=== PATIENT | female | born 1995 | race Caucasian/White ===

== ENCOUNTER 2025-04-12 12:10 | Emergency (ER) | payer SELFPAY ==
[2025-04-12 12:11] VITALS: BP 147/102; PULSE 87; RESP 16; TEMP 37.1; O2SAT 100; BMI 39.5
--- NOTE | 2025-04-12 12:28 | CT_ITS ---
PROCEDURE: BRAIN/HEAD WITHOUT CONTRAST 04/12/2025 REASON FOR EXAM: PAIN INJURY Initial encounter. TECHNIQUE: Head CT without intravenous contrast. Coronal and Sagittal reconstruction series were provided. One or more dose reduction techniques were used (e.g., Automated exposure control, adjustment of the mA and/or kV according to patient size, use of iterative reconstruction technique. RADIATION DOSE SUMMARY: CTDlvol: 44.99 and 29.38 mGy DLP: 1400.15 mGycm COMPARISON: CT facial bones of same date FINDINGS: Brain: No intra-axial or extra-axial hemorrhage. No signs of ischemia or infarcts. CSF Spaces: CSF spaces, ventricles and sulci appear normal Sinuses/Mastoids: Minimal ethmoid sinus mucosal thickening. Sinuses predominantly clear. Mastoid air cells are clear. Bones: No aggressive lesions. CT/Brain/Head without Contrast IMPRESSION: No acute process detected. Other findings as above. Reading [facility]
--- OUTSIDE RECORDS SUMMARY | 2025-04-12 12:57 | XMS RPT_ITS | CCD ---
Author Organization [facility] Care Team Providers Care Medical Liaison Name Role Phone Maureen Martinez MD Primary Care Provider [phone] YOON PEREIRA CNM Attending Unavailable PEREIRA, YOON CNM Admitting Unavailable PEREIRA, YOON CNM Primary Care Unavailable PEREIRA, YOON CNM Primary Care Unavailable PEREIRA, YOON CNM Attending Unavailable PEREIRA, YOON CNM Admitting Unavailable WEBSTER, ANIRUDH CNM Admitting Unavailable WEBSTER, ANIRUDH CNM Primary Care Unavailable WEBSTER, ANIRUDH CNM Attending Unavailable PEREIRA, YOON CNM Attending Unavailable PEREIRA, YOON CNM Admitting Unavailable PEREIRA, YOON CNM Primary Care Unavailable PEREIRA, YOON CNM Primary Care Unavailable PEREIRA, YOON CNM Attending Unavailable PEREIRA, YOON CNM Admitting Unavailable PEREIRA, YOON CNM Primary Care Unavailable PEREIRA, YOON CNM Attending Unavailable PEREIRA, YOON CNM Admitting Unavailable PEREIRA, YOON CNM Primary Care Unavailable PEREIRA, YOON CNM Attending Unavailable PEREIRA, YOON CNM Admitting Unavailable Maureen Martinez MD Primary Care Provider [phone] Maureen Martinez MD Primary Care Provider [phone] MAUREEN MARTINEZ Primary Care Unavailable MAUREEN MARTINEZ Primary Care Unavailable MAUREEN MARTINEZ Primary Care Unavailable MAUREEN MARTINEZ Primary Care Unavailable Medications Current Medications Medication Drug Class(es) Dates Sig (Normalized) Sig (Original) acetaminophen 325 mg oral tablet (6 sources) take 2 tablets by mouth every six hours as needed acetaminophen (TYLENOL) 325 mg tablet Take 650 mg by mouth every 6 hours as needed. Active Comment on above: Take 650 mg by mouth every 6 hours as needed. amoxicillin 875 mg / clavulanate 125 mg oral tablet (4 sources) Penicillin-class Antibacterial Start: 09-24-2024 End: 10-04-2024 take 1 tablet by mouth twice daily amoxicillin-clavul anate potassium (AUGMENTIN) 875-125 mg per tablet Take 1 tablet by mouth two times a day for 10 days. 20 tablet 09/24/2024 10/04/2024 Active Start: 03-02-2024 End: 03-12-2024 take 1 tablet by mouth twice daily amoxicillin-clavulanate potassium (AUGMENTIN) 875-125 mg per tablet Indications: Pain, dental Take 1 tablet by mouth two times a day for 10 days. 20 tablet 0 03/02/2024 03/12/2024 Active Start: 01-05-2024 End: 01-12-2024 take 1 tablet by mouth twice daily amoxicillin-clavulanate potassium (AUGMENTIN) 875-125 mg per tablet Take 1 tablet by mouth two times a day for 7 days. 14 tablet 0 01/05/2024 01/12/2024 Active Start: 01-06-2023 End: 01-11-2023 take 1 tablet by mouth twice daily amoxicillin-clavulanic acid (AUGMENTIN) 875-125 mg per tablet Indications: Rhinosinusitis Take 1 tablet by mouth twice daily for 5 days. 10 tablet 0 01/06/2023 01/11/2023 Active Comment on above: Take 1 tablet by rachelle th twice daily for 5 days. Take 1 tablet by rachelle th two times a day for 7 days. Completed/Discontinued Medications Medication Drug Class(es) Dates Sig (Normalized) Sig (Original) doxycycline monohydrate 100 mg oral tablet (1 source) Tetracycline-cla ss Drug Start: 01-06-2023 End: 01-06-2023 take 1 tablet by mouth twice daily doxycycline monohydrate 100 mg tablet Indications: Rhinosinusitis Take 1 tablet by mouth twice daily for 7 days. 14 tablet 0 01/06/2023 01/06/2023 Discontinued Comment on above: Take 1 tablet by rachelle th twice daily for 7 days. Problems Active Problems Problem Classification Problem Date Documented Da te Episodic/Chronic Anxiety disorders (6 sources) Generalized anxiety disorder; Translations: [Generalized anxiety disorder] Onset: 10-22-2015 10-27-2015 Chronic Disorders of teeth and jaw (3 sources) Infection of tooth; Translations: [Periapical abscess without sinus] 01-05-2024 Episodic Other upper respiratory disease (1 source) Chronic rhinitis; Translations: [Unspecified sinusitis (chronic)] Chronic Other upper respiratory infections (5 sources) Sore throat symptom; Translations: [Acute pharyngitis, unspecified] Episodic Residual codes; unclassified (3 sources) 38 weeks gestation of ; Translations: [38 weeks gestation of ] Onset: 12-03-2023 Episodic Substance-related disorders (6 sources) Smoker; Translations: [Nicotine dependence, unspecified, uncomplicated] Onset: 10-22-2015 10-31-2021 Chronic Past or Other Problems Problem Classification Problem Date Documented Date Episodic/Chronic Cancer of cervix (6 sources) Low grade squamous intraepithelial lesion on cervical Papanicolaou smear; Translations: [Low grade squamous intraepithelial lesion on cytologic smear of cervix (LGSIL)] Onset: 02-23-2017 02-23-2017 Episodic Headache; including migraine (2 sources) Headache; Translations: [Headache] Onset: 10-22-2015 Resolved: 03-23-2017 03-23-2017 Episodic Other complications of (6 sources) Maternal tobacco use; Translations: [Smoking (tobacco) complicating , first trimester] Onset: 01-12-2017 01-12-2017 Episodic Other complications of (2 sources) H/O: miscarriage; Translations: [Supervision of with other poor reproductive or obstetric history, unspecified trimester] Onset: 01-12-2014 Resolved: 06-03-2014 10-31-2021 Episodic Other and delivery including normal (10 sources) Normal ; Translations: [Encounter for supervision of normal , unspecified, third trimester] Onset: 01-12-2014 Resolved: 06-03-2014 06-27-2017 Episodic Screening and history of mental health and substance abuse codes (6 sources) H/O: depression; Translations: [Personal history of other mental and behavioral disorders] Onset: 01-12-2014 10-31-2021 Episodic Results Test Name Value Interpretation Reference Range Facil tram PASTRANAon 09-24-2024 CNOV Office Visit ([facility]) ANIRUDH WIGGINS ([id number]) 1995 F Date Time Provider Department 09/24/24 2:15 PM LOREE SPANGLER [facility] During your visit today, we recorded the following information about you: Temperature Pulse Respiration Blood pressure 98.9 degrees 110/minute 16/minute 122/80 Weight 117.5 kg Loree Spangler APRN.POINTER MACHINE OPERATOR 09/24/2024 2:10 PM Signed This note was created using [employer]. Subjective Anirudh Wiggins is a 29 year old female. 29 year old female with PMH anxiety and depression presents for dental complaints Acute on chronic Left lower The tooth itself has been messed up for a while States this bout started approximately 3 days ago +pain +sensitivity to hot and cold Pain with chewing Denies fever or chills Denies difficulty handling secretions. Denies seeking medical treatment prior to today She goes to a [place] dentist that is walk in. The history is provided by the patient. No american sign language teacher was used. Dental Problem This is a recurrent problem. The current episode started in the past 7 days. The problem occurs constantly. The problem has been gradually worsening. Pertinent negatives include no abdominal pain, anorexia, arthralgias, change in bowel habit, chest pain, chills, congestion, coughing, diaphoresis, fatigue, fever, headaches, joint swelling, myalgias, nausea, neck pain, numbness, rash, sore throat, swollen glands, urinary symptoms, vertigo, visual change, vomiting or weakness. Nothing aggravates the symptoms. She has tried nothing for the symptoms. The treatment provided no relief. PAST MEDICAL HISTORY Diagnosis Date Anemia DEPRESSION GBS (group B streptococcus) UTI complicating 07/17/2014 07/17/14 - treat in labor - KJ Rubella non-immune status, antepartum 01/13/2014 PAST SURGICAL HISTORY Procedure Laterality Date PAST SURGICAL HISTORY OF 2007 D and C ALLERGIES Patient has no known allergies. MEDICATIONS acetaminophen (TYLENOL) 325 mg tablet Take 650 mg by mouth every 6 hours as needed. amoxicillin-clavulan ate potassium (AUGMENTIN) 875-125 mg per tablet Take 1 tablet by mouth two times a day for 10 days. FAMILY HISTORY Problem Relation Age of Onset Hypertension Mother Arthritis Mother Heart Mother IRREGULAR HEARTBEAT Alcohol/Drug Father Psychiatry Father other (DEMENTIA) Paternal Grandmother Social History Tobacco Use Smoking status: Every Day Current packs/day: 1.00 Average packs/day: 1 pack/day for 5.0 years (5.0 ttl pk-yrs) Types: Cigarettes Smokeless tobacco: Never Substance Use Topics Alcohol use: Yes Comment: rarely Drug use: No Review of Systems Constitutional: Negative for chills, diaphoresis, fatigue and fever. HENT: Negative for congestion and sore throat. Respiratory: Negative for cough. Cardiovascular: Negative for chest pain. Gastrointestinal: Negative for abdominal pain, anorexia, change in bowel habit, nausea and vomiting. Musculoskeletal: Negative for arthralgias, joint swelling, myalgias and neck pain. Skin: Negative for rash. Neurological: Negative for vertigo, weakness, numbness and headaches. Objective BP 122/80 Pulse 110 Temp 37.2 ?C (98.9 ?F) Resp 16 Wt 117.5 kg (259 lb 0.7 oz) LMP 10/11/2016 SpO2 99% BMI 39.39 kg/m? Physical Exam Vitals and nursing note reviewed. Constitutional: General: She is not in acute distress. Appearance: Normal appearance. She is normal weight. She is not ill-appearing, toxic-appearing or diaphoretic. HENT: Head: Normocephalic and atraumatic. Right Ear: Ear canal and external ear normal. Left Ear: Ear canal and external ear normal. Nose: Nose normal. No congestion or rhinorrhea. Mouth/Throat: Mouth: Mucous membranes are moist. Pharynx: No oropharyngeal exudate or posterior oropharyngeal erythema. Comments: No trismus No muffled voice Uvula midline Handling secretions Eyes: General: Right eye: No discharge. Left eye: No discharge. Extraocular Movements: Extraocular movements intact. Conjunctiva/sclera: Conjunctivae normal. Pupils: Pupils are equal, round, and reactive to light. Cardiovascular: Rate and Rhythm: Normal rate and regular rhythm. Pulses: Normal pulses. Heart sounds: Normal heart sounds. No murmur heard. No friction rub. Pulmonary: Effort: Pulmonary effort is normal. No respiratory distress. Breath sounds: Normal breath sounds. No stridor. No wheezing, rhonchi or rales. Chest: Chest wall: No tenderness. Abdominal: General: Abdomen is flat. There is no distension. Palpations: Abdomen is soft. There is no mass. Tenderness: There is no abdominal tenderness. There is no right CVA tenderness, left CVA tenderness, guarding or rebound. Hernia: No hernia is present. Musculoskeletal: General: No swelling, tenderness, deformity or signs of injury. Normal range of (more content not included)... Normal [facility] CNOVon 03-02-2024 CNOV Office Visit ([facility]) ANIRUDH WIGGINS ([id number]) 1995 F Date Time Provider Department 03/02/24 2:15 PM MARAH MARCOS [facility] During your visit today, we recorded the following information about you: Temperature Pulse Respiration Blood pressure 98.6 degrees 88/minute 16/minute 122/70 Weight 110 kg Marah Marcos APRN.POINTER MACHINE OPERATOR 03/02/2024 2:58 PM Signed Subjective HPI HPI Anirudh Scales Lenard is a 28 year old female who presents today for CC of dental pain. This started 2 days ago. Has tried otc medication for relief. Symptoms are worsened by nothing. Risk factors hx of dental infections, tx with atb for this tooth few month ago, did not see dentist after treatment. Denies possibility of being . .Patient presents with: Dental Problem: bottom right side tooth pain with swelling x 2 days PAST MEDICAL HISTORY Diagnosis Date Anemia DEPRESSION GBS (group B streptococcus) UTI complicating 07/17/2014 07/17/14 - treat in labor - KJ Rubella non-immune status, antepartum 01/13/2014 PAST SURGICAL HISTORY Procedure Laterality Date PAST SURGICAL HISTORY OF 2007 D and C ALLERGIES Patient has no known allergies. MEDICATIONS acetaminophen (TYLENOL) 325 mg tablet Take 650 mg by mouth every 6 hours as needed. amoxicillin-clavulan ate potassium (AUGMENTIN) 875-125 mg per tablet Take 1 tablet by mouth two times a day for 10 days. FAMILY HISTORY Problem Relation Age of Onset Hypertension Mother Arthritis Mother Heart Mother IRREGULAR HEARTBEAT Alcohol/Drug Father Psychiatry Father other (DEMENTIA) Paternal Grandmother Social History Tobacco Use Smoking status: Every Day Packs/day: 1.00 Years: 5.00 Additional pack years: 0.00 Total pack years: 5.00 Types: Cigarettes Smokeless tobacco: Never Substance Use Topics Alcohol use: Yes Comment: rarely Drug use: No ROS Objective Blood pressure 122/70, pulse 88, temperature 37 ?C (98.6 ?F), resp. rate 16, weight 110 kg (242 lb 8.1 oz), last menstrual period 10/11/2016, SpO2 98%. Physical Exam Constitutional: General: She is not in acute distress. Appearance: She is not toxic-appearing or diaphoretic. HENT: Head: Normocephalic and atraumatic. Mouth/Throat: Pulmonary: Effort: Pulmonary effort is normal. No accessory muscle usage or respiratory distress. Lymphadenopathy: Cervical: No cervical adenopathy. Right cervical: No superficial cervical adenopathy. Left cervical: No superficial cervical adenopathy. Neurological: Mental Status: She is alert and oriented to person, place, and time. ASSESSMENT/PLAN: 1. Pain, dental - ICD9: 525.9, ICD10: K08.89 Take medication as ordered See dentist patric Follow up if signs of infection worsen - AMOXICILLIN 875 MG-POTASSIUM CLAVULANATE 125 MG TABLET Marah Marcos APRN.POINTER MACHINE OPERATOR Allergies As of Date: 03/02/2024 (No Known Allergies) Date Reviewed: 03/02/2024 Reviewed by: Jessica Sears MA - Fully Assessed Reason for Visit: Dental Problem [31] Cmt: bottom right side tooth pain with swelling x 2 days Primary Visit Diagnosis:Pain, dental [K08.89] Order(s):amoxicillin -clavulanate potassium (AUGMENTIN) 875-125 mg per tabletTake 1 tablet by mouth two times a day for 10 days.Disp: 20 tabletRfl: 0 Prescriptions as of 03/02/2024 - amoxicillin-clavulan ate potassium (AUGMENTIN) 875-125 mg per tablet Take 1 tablet by mouth two times a day for 10 days. - acetaminophen (TYLENOL) 325 mg tablet Take 650 mg by mouth every 6 hours as needed. Problem List As Of Date 03/02/2024 Noted Resolved History of miscarriage, currently [O09*01/12/2014 06/03/2014 with uncertain dates [Z34.90] 01/12/2014 06/03/2014 History of depression [Z86.59] 01/12/2014 Patient requested diagnostic testing [Z01.89] 01/12/2014 06/03/2014 Smoker [F17.200] 10/22/2015 Headache [R51] 10/22/2015 03/23/2017 Generalized anxiety disorder [F41.1] 10/22/2015 Maternal tobacco use in first trimester [O99.33*01/12/2017 Encounter for supervision of normal i*01/12/2017 Papanicolaou smear of cervix with low grade squ*02/23/2017 Prescriptions ordered this encounter Disp Refills Start End AMOXICILLIN 875 MG-POTASSIUM CLAVULA* 20 t* 0 03/02/2024 03/12/2024 Route: ORAL Sig: Take 1 tablet by mouth two times a day for 10 days. Encounter Status:Closed by MARAH MARCOS on 03/02/24 [facility] CNOVon 01-05-2024 CNOV Office Visit ([facility]) ANIRUDH WIGGINS ([id number]) 1995 F Date Time Provider Department 01/05/24 2:00 PM JANIYA GOMEZ [facility] During your visit today, we recorded the following information about you: Temperature Pulse Respiration Blood pressure 97.3 degrees 75/minute 21/minute 110/88 Weight 111.9 kg Janiya Gomez PA-C 01/05/2024 2:13 PM Signed This note was created using [employer]. Subjective Anirudh Loyda Wiggins is a 28 year old female. HPI Presents with right lower tooth pain over the past 3 days. She states the filling fell out and she put some tooth putty in it but is still very painful. She has an appointment with her dentist on the but they told her to come in to make sure it was not infected. She has tried ibuprofen and Tylenol utic-lll-specxym. No fever. No drainage from the tooth. She has not noticed facial swelling. Review of Systems Constitutional: Negative. HENT: Positive for dental problem. Eyes: Negative. Respiratory: Negative. Cardiovascular: Negative. Gastrointestinal: Negative. Genitourinary: Negative. Musculoskeletal: Negative. All other systems reviewed and are negative. PAST MEDICAL HISTORY Diagnosis Date Anemia DEPRESSION GBS (group B streptococcus) UTI complicating 07/17/2014 07/17/14 - treat in labor - KJ Rubella non-immune status, antepartum 01/13/2014 Current Outpatient Medications Medication Sig Dispense Refill acetaminophen (TYLENOL) 325 mg tablet Take 650 mg by mouth every 6 hours as needed. amoxicillin-clavulan ate potassium (AUGMENTIN) 875-125 mg per tablet Take 1 tablet by mouth two times a day for 7 days. 14 tablet 0 No current facility-administere d medications for this visit. PAST SURGICAL HISTORY Procedure Laterality Date PAST SURGICAL HISTORY OF 2007 D and C FAMILY HISTORY Problem Relation Age of Onset Hypertension Mother Arthritis Mother Heart Mother IRREGULAR HEARTBEAT Alcohol/Drug Father Psychiatry Father other (DEMENTIA) Paternal Grandmother Social History Tobacco Use Smoking status: Every Day Packs/day: 1.00 Years: 5.00 Additional pack years: 0.00 Total pack years: 5.00 Types: Cigarettes Smokeless tobacco: Never Substance Use Topics Alcohol use: Yes Comment: rarely Drug use: No Objective BP 110/88 Pulse 75 Temp 36.3 ?C (97.3 ?F) Resp 21 Wt 111.9 kg (246 lb 9.6 oz) LMP 10/11/2016 SpO2 98% BMI 37.50 kg/m? Physical Exam Vitals reviewed. Constitutional: Appearance: Normal appearance. HENT: Head: Normocephalic and atraumatic. Mouth/Throat: Comments: Patient tooth #29 appears to have a broken filling with tooth putty in place. There is some mild gumline swelling. Some mild overlying facial swelling. No trismus. Skin: General: Skin is warm and dry. Neurological: Mental Status: She is alert. Assessment and Plan ASSESSMENT/PLAN: 1. Dental infection - ICD9: 522.4, ICD10: K04.7 Will treat with Augmentin. Follow-up with dentist. Discussed appropriate ibuprofen and Tylenol dose. Janiya Gomez PA-C Allergies As of Date: 01/05/2024 (No Known Allergies) Date Reviewed: 01/05/2024 Reviewed by: Vibha Ortiz MA - Fully Assessed Reason for Visit: Dental Problem [31] Cmt: Right side bottom tooth pain x 3 days Primary Visit Diagnosis:Dental infection [K04.7] Order(s):amoxicillin -clavulanate potassium (AUGMENTIN) 875-125 mg per tabletTake 1 tablet by mouth two times a day for 7 days.Disp: 14 tabletRfl: 0 Prescriptions as of 01/05/2024 - amoxicillin-clavulan ate potassium (AUGMENTIN) 875-125 mg per tablet Take 1 tablet by mouth two times a day for 7 days. - acetaminophen (TYLENOL) 325 mg tablet Take 650 mg by mouth every 6 hours as needed. Problem List As Of Date 01/05/2024 Noted Resolved History of miscarriage, currently [O09*01/12/2014 06/03/2014 with uncertain dates [Z34.90] 01/12/2014 06/03/2014 History of depression [Z86.59] 01/12/2014 Patient requested diagnostic testing [Z01.89] 01/12/2014 06/03/2014 Smoker [F17.200] 10/22/2015 Headache [R51] 10/22/2015 03/23/2017 Generalized anxiety disorder [F41.1] 10/22/2015 Maternal tobacco use in first trimester [O99.33*01/12/2017 Encounter for supervision of normal i*01/12/2017 Papanicolaou smear of cervix with low grade squ*02/23/2017 Prescriptions ordered this encounter Disp Refills Start End AMOXICILLIN 875 MG-POTASSIUM CLAVULA* 14 t* 0 01/05/2024 01/12/2024 Route: ORAL Sig: Take 1 tablet by mouth two times a day for 7 days. Encounter Status:Closed by JANIYA GOMEZ on 01/05/24 Normal [facility] CBC + DIFFon 12-08-2023 Baso # 0.10 x10EE3/UL Normal 0.00 - 0.10 [facility] Comment on above: Performed By: #### 2 [id number] #### [facility],[address] [place] [id number] Basophils/100 WBC (Bld) 0.7 % Normal 0.0 - 2.0 [facility] Comment on above: Performed By: #### 2 [id number] #### [facility],[address] [place] [address] CBC + DIFF Normal [facility] Comment on above: Result Comment: CBC- COMPLETE BLOOD COUNT Performed By: #### 2 [id number] #### [facility],[address] [place] [address] EO # 0.40 x10EE3/UL Normal 0.00 - 0.50 [facility] Comment on above: Performed By: #### 2 [id number] #### [facility],[address] [place] [address] Eosinophils/100 WBC (Bld) 3.0 % Normal 0.0 - 7.0 [facility] Comment on above: Performed By: #### 2 [id number] #### [facility],[address] [place] [address] Erythrocyte distribution width (RBC) [Ratio] 14.4 % Normal 12.0 - 15.6 [facility] Comment on above: Performed By: #### 2 [id number] #### [facility],[address] [place] [address] Hematocrit (Bld) [Volume fraction] 33.4 % Low 34.0 - 46.0 [facility] Comment on above: Performed By: #### 2 [id number] #### [facility],[address] [place], [place] [id number] Hemoglobin (Bld) [Mass/Vol] 11.0 g/dL Low 12.0 - 16.0 [facility] Comment on above: Performed By: #### 2 [id number] #### [facility],[address] [place] [address] Lymph # 3.90 x10EE3/UL High 0.80 - 2.80 [facility] Comment on above: Performed By: #### 2 [id number] #### [facility],[address] [place] [address] Lymphocytes/100 WBC (Bld) 29.1 % Normal 20.0 - 45.0 [facility] Comment on above: Performed By: #### 2 [id number] #### [facility],[address] [place] [address] MANUAL DIFF N/A Normal [facility] Comment on above: Performed By: #### 2 [id number] #### [facility],[address] [place] [address] MCH (RBC) [Entitic mass] 28 pg Normal 27 - 33 [facility] Comment on above: Performed By: #### 2 [id number] #### [place] [address] MCHC 33 X10 3 Normal 32 - 36 [facility] Comment on above: Performed By: #### 2 [id number] #### [place] [address] MCV (RBC) [Entitic vol] 86 fL Normal 80 - 99 [facility] Comment on above: Performed By: #### 2 [id number] #### [facility],[address] [place] [address] [place] # 0.90 x10EE3/UL Normal 0.20 - 1.00 [facility] Comment on above: Performed By: #### 2 [id number] #### [place] [address] MONOS % 7.1 % Normal 0.0 - 10.0 [facility] Comment on above: Performed By: #### 2 [id number] #### [facility],[address] [place], [place] [id number] Morphology Rosalio (Bld) [Interp] N/A Normal [facility] Comment on above: Result Comment: {CD] Performed By: #### 2 [id number] #### [facility],[address] [place] [address] Neut # 8.00 x10EE3/UL High 1.50 - 7.10 [facility] Comment on above: Performed By: #### 2 [id number] #### [facility],[address] [place] [address] Neutrophils/100 WBC (Bld) 60.1 % Normal 46.0 - 76.0 [facility] Comment on above: Performed By: #### 2 28048 #### [facility],[address] [place] [address] PLATELET 248 x10EE3/UL Normal 150 - 450 [facility] Comment on above: Performed By: #### 2 [id number] #### [facility],[address] [place] [address] Platelet mean volume (Bld) [Entitic vol] 9.6 fL Normal 6.6 - 10.5 [facility] Comment on above: Result Comment: AUTO MATED DIFFERENTIAL Performed By: #### 2 [id number] #### [facility],[address] [place], [place] [id number] RBC 3.89 x 10EE6/UL Low 4.10 - 5.30 [facility] Comment on above: Performed By: #### 2 73066 #### [facility],[address] [place], [place] [id number] WBC 13.3 x 10EE3/UL High 4.5 - 10.8 [facility] Comment on above: Performed By: #### 2 [id number] #### [place] [address] CBC + DIFFon 12-07-2023 Baso # 0.10 x10EE3/UL Normal 0.00 - 0.10 [facility] Comment on above: Performed By: #### 2 [id number] #### [facility] [facility],[address] [place], [place] [id number] Basophils/100 WBC (Bld) 0.9 % Normal 0.0 - 2.0 [facility] Comment on above: Performed By: #### 2 71642 #### [facility],[address] [place] [address] CBC + DIFF Normal [facility] Comment on above: Result Comment: CBC- COMPLETE BLOOD COUNT Performed By: #### 2 75071 #### [facility],[address] [place] [address] EO # 0.20 x10EE3/UL Normal 0.00 - 0.50 [facility] Comment on above: Performed By: #### 2 09242 #### [facility],[address] [place] [address] Eosinophils/100 WBC (Bld) 1.4 % Normal 0.0 - 7.0 [facility] Comment on above: Performed By: #### 2 33893 #### [facility],[address] [place] [address] Erythrocyte distribution width (RBC) [Ratio] 14.5 % Normal 12.0 - 15.6 [facility] Comment on above: Performed By: #### 2 65266 #### [facility],[address] [place] [address] Hematocrit (Bld) [Volume fraction] 34.9 % Normal 34.0 - 46.0 [facility] Comment on above: Performed By: #### 2 97236 #### [facility],[address] [place], [place] [id number] Hemoglobin (Bld) [Mass/Vol] 11.6 g/dL Low 12.0 - 16.0 [facility] Comment on above: Performed By: #### 2 60631 #### [facility],[address] [place] [address] Lymph # 3.40 x10EE3/UL High 0.80 - 2.80 [facility] Comment on above: Performed By: #### 2 33078 #### [facility],[address] [place] [address]28 Lymphocytes/100 WBC (Bld) 22.4 % Normal 20.0 - 45.0 [facility] Comment on above: Performed By: #### 2 41262 #### [facility],[address] [place] [address] 19114 MANUAL DIFF N/A Normal [facility] Comment on above: Performed By: #### 2 85426 #### [facility],[address] [place] [address] 92106 MCH (RBC) [Entitic mass] 28 pg Normal 27 - 33 [facility] Comment on above: Performed By: #### 2 78674 #### [facility],[address] [place] [address] MCHC 33 X10 3 Normal 32 - 36 [facility] Comment on above: Performed By: #### 2 03025 #### [facility],[address] [place] [address] 96547 MCV (RBC) [Entitic vol] 86 fL Normal 80 - 99 [facility] Comment on above: Performed By: #### 2 11763 #### [facility],[address] [place] [address]91 Caldwell # 1.10 x10EE3/UL High 0.20 - 1.00 [facility] Comment on above: Performed By: #### 2 87048 #### [facility],[address] [place] [address] 27305 MONOS % 7.2 % Normal 0.0 - 10.0 [facility] Comment on above: Performed By: #### 2 22953 #### [facility],[address] [place] [address] 93946 Morphology Rosalio (Bld) [Interp] N/A Normal [facility] Comment on above: Result Comment: {CD] Performed By: #### 2 48838 #### [facility],[address] [place] [address] 35147 Neut # 10.20 x10EE3/UL High 1.50 - 7.10 [facility] Comment on above: Performed By: #### 2 86009 #### [facility],[address] [place] [address] 13424 Neutrophils/100 WBC (Bld) 68.1 % Normal 46.0 - 76.0 [facility] Comment on above: Performed By: #### 2 42583 #### [facility],[address] [place] [address] 74279 PLATELET 275 x10EE3/UL Normal 150 - 450 [facility] Comment on above: Performed By: #### 2 45410 #### [address] [address] Platelet mean volume (Bld) [Entitic vol] 10.8 fL High 6.6 - 10.5 [facility] Comment on above: Result Comment: AUTO MATED DIFFERENTIAL Performed By: #### 2 99562 #### [facility],[address] [place] [address] 01276 RBC 4.08 x 10EE6/UL Low 4.10 - 5.30 [facility] Comment on above: Performed By: #### 2 33706 #### [address] [address] WBC 15.1 x 10EE3/UL High 4.5 - 10.8 [facility] Comment on above: Performed By: #### 2 41998 #### [address] [address] GROUP B STREP BY PCR (POM)on 12-05-2023 GBS Positive Abnormal [facility] Comment on above: Result Comment: GROU P B STREPTOCOCCUS(GBS) THIS ASSAY HAS BEEN VALIDATED IN THE [facility] FOR USE WITH VAGINAL- RECTAL SWAB SPECIMENS. INTERPRETIVE DATA TEST RESULTS SHOULD BE INTERPRETED IN CONJUNCTION WITH OTHER LABORATORY AND CLINICAL DATA. A POSITIVE TEST RESULT FOR GROUP B STREPTOCOCCUS(GBS)INDICATES THAT BACTERIAL NUCLEIC ACIDS FROM GROUP B STREPTOCOCCUS(GBS)WERE DETECTED. A NEGATIVE TEST RESULT FOR THIS TEST MEANS THAT BACTERIAL NUCLEIC ACIDS FROM GROUP B STREPTOCOCCUS(GBS)WERE NOT PRESENT IN THE SPECIMEN ABOVE THE LIMIT OF DETECTION. WHEN DIAGNOSTIC TESTING IS NEGATIVE, THE POSSIBLILTY OF A FALSE NEGATIVE RESULT SHOULD BE CONSIDERED IN THE CONTEXT OF A PATIENT'S CLINICAL SIGNS AND SYMPTOMS CONSISTENT WITH GROUP B STREPTOCOCCUS(GBS). THERE IS A RISK OF FALSE NEGATIVE RESULTS DUE TO IMPROPERLY COLLECTED, TRANSPORTED, OR HANDLED SWAB SAMPLES. THERE IS A RISK OF FALSE NEGATIVE RESULTS DUE TO THE PRESENCE OF SEQUENCE VARIANTS IN THE TARGETS OF THE ASSAY, PROCEDURAL ERRORS, AMPLIFICATION INHIBITORS IN SAMPLES, OR INADEQUATE NUMBERS OF ORGANISM(S) FOR AMPLIFICATION. THERE IS A RISK OF FALSE POSITIVE RESULTS DUE TO POTENTIAL CROSS-CONTAMINATION BY TARGET ORGANISM(S), THEIR NUCLEIC ACID OR AMPLIFIED PRODUCT, OR FROM NON- SPECIFIC SIGNALS IN THE ASSAY. ADDITIONAL FOLLOW-UP TESTING BY CULTURE IS REQUIRED IF THE SANDRA GROUP B STREPTOCOCCUS(GBS)RESULT IS NEGATIVE AND CLINICAL SYMPTOMS PERSIST. Performed By: #### 2 39158 #### [facility],[address] [place], [place] [id number] Office Visit (UCWSTR) ANIRUDH WIGGINS ([id number]) 1995 F Date Time Provider Department 10/28/23 12:45 PM EMILEE JARRELL [facility] During your visit today, we recorded the following information about you: Temperature Pulse Respiration Blood pressure 100.8 degrees 88/minute 16/minute 122/70 Weight 119.7 kg Emilee Jarrell APRN.[facility] 10/28/2023 1:04 PM Signed ASSESSMENT/PLAN: 1. Viral URI - ICD9: 465.9, ICD10: J06.9 (primary diagnosis) - Discussed viral etiology and rationale for treatment. - Symptomatic treatment with prn analgesia - Supportive care with fluids and rest - COVID AND INFLUENZA A/B NAAT, ROUTINE 2. Sore throat - ICD9: 462, ICD10: J02.9 - suspect viral - Group A strep molecular testing negative - Discussed supportive care treatment with fluids, rest and analgesia. - Follow-up with your PCP in 3-5 days if symptoms have not improved or sooner if symptoms worsen - Discussed red flags and need for immediate medical evaluation if any occur. - Discussed supportive care treatment with fluids, rest and analgesia. - Discussed expected course of illness Emilee Jarrell APRN.POINTER MACHINE OPERATOR Treatment for Viral Upper Respiratory Tract Infections Your body will kill off the virus by itself. Additionally, you can prime your body's immune system. This may help you get better more quickly. Drink lots of fluids Make sure you are eating well Get plenty of rest We do not have any medications that kill off these viruses. Antibiotics are used to treat bacterial infections; however, they are not active against viral infections. There are some things that might help you feel better, though. Vaporizers, humidifiers, hot showers, and hot fluids help open respiratory and sinus passages Fielding Nasal Maysel may offer relief of nasal and head congestion Neftaly's Vapor Rub may relieve congestion Tylenol and Advil help control fevers and headaches Salt water gargles help relieve sore throats Chloraceptic spray or throat lozenges may also help relieve sore throat symptoms Occasionally, viral infections turn into something more serious. You should see your doctor or return to the Urgent Care if: You have fevers for longer than five days You have fevers above 102 degrees You are still sick after 10 days You have shortness of breath or wheezing After several days you are getting worse rather than better Emilee Jarrell APRN.POINTER MACHINE OPERATOR 11/07/2023 9:48 AM Addendum Subjective Nasal Congestion Associated symptoms include chills, congestion, headaches and a sore throat. Pertinent negatives include no coughing or ear pain. Anirudh Wiggins is a 28 year old female who presents with 6 hours of fever, body aches, chills, nasal congestion, sore throat, and headache. Her daughter was sick last night and today with similar symptoms. She has taken Tylenol for fever. Review of Systems Constitutional: Positive for chills and fever. HENT: Positive for congestion and sore throat. Negative for ear pain. Respiratory: Negative for cough. Cardiovascular: Negative. Gastrointestinal: Negative for diarrhea and vomiting. Musculoskeletal: Positive for myalgias. Neurological: Positive for headaches. BP 122/70 Pulse 88 Temp (!) 38.2 ?C (100.8 ?F) Resp 16 Wt 119.7 kg (264 lb) LMP 10/11/2016 SpO2 99% BMI 40.14 kg/m? PAST MEDICAL HISTORY Diagnosis Date Anemia DEPRESSION GBS (group B streptococcus) UTI complicating 07/17/2014 07/17/14 - treat in labor - KJ Rubella non-immune status, antepartum 01/13/2014 PAST SURGICAL HISTORY Procedure Laterality Date PAST SURGICAL HISTORY OF 2007 D and C ALLERGIES Patient has no known allergies. MEDICATIONS acetaminophen (TYLENOL) 325 mg tablet Take 650 mg by mouth every 6 hours as needed. FAMILY HISTORY Problem Relation Age of Onset Hypertension Mother Arthritis Mother Heart Mother IRREGULAR HEARTBEAT Alcohol/Drug Father Psychiatry Father other (DEMENTIA) Paternal Grandmother Social History Tobacco Use Smoking status: Every Day Packs/day: 1.00 Years: 5.00 Additional pack years: 0.00 Total pack years: 5.00 Types: Cigarettes Smokeless tobacco: Never Substance Use Topics Alcohol use: Yes Comment: rarely Drug use: No Objective Physical Exam Vitals and nursing note reviewed. Constitutional: General: She is not in acute distress. Appearance: Normal appearance. She is not ill-appearing. HENT: Right Ear: Tympanic membrane, ear canal and external ear normal. Left Ear: Tympanic membrane, ear canal and external ear normal. Nose: Congestion present. Mouth/Throat: Mouth: Mucous membranes are moist. Pharynx: Oropharynx is clear. Uvula midline. No oropharyngeal exudate or posterior oropharyngeal erythema. Cardiovascular: Rate and Rhythm: Normal rate and regular rhythm. Heart sounds: Normal heart sounds. Pul (more content not included)... Normal [facility] FLUABV + SARS-CoV-2 Pnl Resp HUEY+prbon 10-28-2023 Influenza virus A and B RNA and SARS-CoV-2 (COVID-19) N gene panel HUEY+probe (Resp) COVID 19 RESULT: Detected The method used is RT-PCR or an equivalent NAAT method. Reference Range (the expected result in uninfected individuals): Not detected INFLUENZA A PCR: Not detected INFLUENZA B PCR: Not detected Abnormal [facility] Comment on above: Performed By: #### 9 5422-2 #### [facility] CLIA [id number] [address] [place] [address] [place] [address] [place] US OB REPEATon 10-22-2023 US OB REPEAT [place] [id number] Patient: ANIRUDH WIGGINS Phone#: : 1995 Age: 28 Gender: F Pt. Type: Out Account: [id number] Location: [facility] Ordering: YOON PEREIRA Exam Date: 10/22/2023/13:07 Family Phys: Charge Code: [id number] Physician: [place] Order #: [id number] Dose#: PROCEDURE: OB REPEAT ULTRASOUND, TRANSABDOMINAL COMPARISON: [facility], OB INITIAL >14 WEEKS, 06/28/2023, 14:12. [facility], OB REPEAT, 08/13/2023, 13:07. INDICATIONS: Growth TECHNIQUE: Complete sonographic examination for obstetrical and evaluation were completed by transabdominal ultrasound. FINDINGS: NUMBER: Single. POSITION: Vertex. AMNIOTIC FLUID VOLUME: Normal for age with KRISTIAN of 12.0 cm. PLACENTA LOCATION: Posterior and fundal. BIPARIETAL DIAMETER: 34 weeks 0 days, 8.4 cm HEAD CIRCUMFERENCE: 33 weeks 1 day, 29.9 cm ABD CIRCUMFERENCE: 31 weeks 4 days, 27.5 cm FEMUR LENGTH: 33 weeks 1 day, 6.4 cm ESTIMATED WEIGHT: 1967 g +/- 294.98 g HEART RATE: 132 bpm ABNORMALITIES/OTHER: Umbilical artery systolic/diastolic ratio 2.5, for a 33 week gestation this is between the 25th and 50th percentile CLINICAL GA: 32 weeks 5 days CLINICAL DANISH: 12/12/2023 ULTRASOUND GA: 33 weeks 0 days ULTRASOUND DANISH: 12/10/2023 CONCLUSION: 1. Single live intrauterine gestation 2. Abdominal circumference measures behind femur length and head measurements though ratios are within expected range. Dictated by: Mirna Davis MD on 10/22/2023 at 15:45 Approved by: Mirna Davis MD on 10/22/2023 at 16:07 Normal [facility] BB ANTIBODY SCREENon 023 ANTIBODY SCR Negative Normal negative [facility] Comment on above: Performed By: #### 2 04423 #### [facility],[address] [place] [address] CBC + DIFFon 09-17-2023 Baso # 0.10 x10EE3/UL Normal 0.00 - 0.10 [facility] Comment on above: Performed By: #### 2 67930 #### [facility],[address] [place], [place] [id number] Basophils/100 WBC (Bld) 0.6 % Normal 0.0 - 2.0 [facility] Comment on above: Performed By: #### 2 78298 #### [facility],[address] [place] [address] CBC + DIFF Normal [facility] Comment on above: Result Comment: CBC- COMPLETE BLOOD COUNT Performed By: #### 2 08900 #### [facility],[address] [place] [address] EO # 0.40 x10EE3/UL Normal 0.00 - 0.50 [facility] Comment on above: Performed By: #### 2 60807 #### [facility],[address] [place], [place] [address] Eosinophils/100 WBC (Bld) 3.2 % Normal 0.0 - 7.0 [facility] Comment on above: Performed By: #### 2 19383 #### [facility],[address] [place] [address] Erythrocyte distribution width (RBC) [Ratio] 13.5 % Normal 12.0 - 15.6 [facility] Comment on above: Performed By: #### 2 67970 #### [facility],[address] [place] [address] Hematocrit (Bld) [Volume fraction] 34.8 % Normal 34.0 - 46.0 [facility] Comment on above: Performed By: #### 2 95948 #### [facility],[address] [place] [address]32 Hemoglobin (Bld) [Mass/Vol] 11.6 g/dL Low 12.0 - 16.0 [facility] Comment on above: Performed By: #### 2 45374 #### [facility],[address] [place] [address] 32656 Lymph # 1.90 x10EE3/UL Normal 0.80 - 2.80 [facility] Comment on above: Performed By: #### 2 27556 #### [facility],[address] [place], [place] [address] Lymphocytes/100 WBC (Bld) 17.1 % Low 20.0 - 45.0 [facility] Comment on above: Performed By: #### 2 59435 #### [facility],[address] [place] [address] 53554 MANUAL DIFF N/A Normal [facility] Comment on above: Performed By: #### 2 24306 #### [facility],[address] [place] [address] 92042 MCH (RBC) [Entitic mass] 29 pg Normal 27 - 33 [facility] Comment on above: Performed By: #### 2 54310 #### [facility],[address] [place] [address] 65691 MCHC 33 X10 3 Normal 32 - 36 [facility] Comment on above: Performed By: #### 2 08960 #### [facility],[address] [place] [address] 98704 MCV (RBC) [Entitic vol] 87 fL Normal 80 - 99 [facility] Comment on above: Performed By: #### 2 74583 #### [facility],[address] [place], [place] [address] Caldwell # 0.90 x10EE3/UL Normal 0.20 - 1.00 [facility] Comment on above: Performed By: #### 2 19740 #### [facility],[address] [place] [address] 64604 MONOS % 7.8 % Normal 0.0 - 10.0 [facility] Comment on above: Performed By: #### 2 23819 #### [facility],[address] [place] [address] 59946 Morphology Rosalio (Bld) [Interp] N/A Normal [facility] Comment on above: Result Comment: {CD] Performed By: #### 2 67273 #### [facility],[address] [place] [address] 15336 Neut # 8.00 x10EE3/UL High 1.50 - 7.10 [facility] Comment on above: Performed By: #### 2 95877 #### [facility],[address] [place] [address] 27818 Neutrophils/100 WBC (Bld) 71.3 % Normal 46.0 - 76.0 [facility] Comment on above: Performed By: #### 2 07015 #### [facility],[address] [place] [address] 39802 PLATELET 240 x10EE3/UL Normal 150 - 450 [facility] Comment on above: Performed By: #### 2 81340 #### [facility],[address] [place] [address] 48378 Platelet mean volume (Bld) [Entitic vol] 10.2 fL Normal 6.6 - 10.5 [facility] Comment on above: Result Comment: AUTO MATED DIFFERENTIAL Performed By: #### 2 07159 #### [facility],[address] [place] [address] 30030 RBC 4.02 x 10EE6/UL Low 4.10 - 5.30 [facility] Comment on above: Performed By: #### 2 16312 #### [facility],[address] [place] [address] 15270 WBC 11.2 x 10EE3/UL High 4.5 - 10.8 [facility] Comment on above: Performed By: #### 2 91612 #### [facility],[address] [place] [address] 74947 GLUCOSE CHALLENGE 50GM 1 NOAH Delio 09-17-2023 Glucose [Mass/Vol] 93 mg/dL Normal 70 - 140 [facility] Comment on above: Performed By: #### 2 16810 #### [facility],[address] [place] [address] 13547 GLUCOSE CHALLENGE 50GM 1 HOUR Normal [facility] Comment on above: Result Comment: GLUC OSE CHALLENGE 50 GMS 1 HOUR Performed By: #### 2 69961 #### [facility],[address] [place] [address] 81658 OB REPEATon 08-13-2023 US OB REPEAT [place] [address] Patient: ANIRUDH WIGGINS Phone#: : 1995 Age: 28 Gender: F Pt. Type: Out Account: [id number] Location: [facility] Ordering: YOON PEREIRA Exam Date: 08/13/2023/13:07 Family Phys: Charge Code: [id number] Physician: [place] Order #: [id number] Dose#: PROCEDURE: OB REPEAT ULTRASOUND, TRANSABDOMINAL COMPARISON: [facility], , OB INITIAL >14 WEEKS, 06/28/2023, 14:12. INDICATIONS: Anatomy TECHNIQUE: Complete sonographic examination for obstetrical and evaluation were completed by transabdominal ultrasound. FINDINGS: NUMBER: Single. POSITION: Transverse, head to maternal left. AMNIOTIC FLUID VOLUME: Normal for age with KRISTIAN of 11.3 cm. PLACENTA LOCATION: Posterior without previa, the tip is 5.6 cm from the cervical os. BIPARIETAL DIAMETER: 21 weeks 6 days, 5.2 cm HEAD CIRCUMFERENCE: 22 weeks 0 days, 19.8 cm ABD CIRCUMFERENCE: 22 weeks 2 days, 17.3 cm FEMUR LENGTH: 22 weeks 3 days, 3.9 cm ESTIMATED WEIGHT: 490.1 g +/- 73.5 g CERVICAL LENGTH: 5.7 cm HEART RATE: 165 bpm ANATOMY: The following structures are normal for age unless specified below: Nose/lips, ventricles, posterior fossa, C/T/L spine, four extremities, four chamber heart, thorax, abdomen, 3-vessel cord, cord insertion, stomach, kidneys, and bladder. ABNORMALITIES/OTHER: None. CLINICAL GA: 22 weeks 5 days CLINICAL DANISH: 12/12/2023 ULTRASOUND GA: 22 weeks 1 day ULTRASOUND DANISH: 12/16/2023 CONCLUSION: 1. Single live intrauterine gestation demonstrating appropriate interval growth compared to initial ultrasound Dictated by: Mirna Davis MD on 08/13/2023 at 16:47 Approved by: Mirna Davis MD on 08/13/2023 at 16:55 Normal [facility] US OB INITIAL >or= 14 WEEKS; 1st GESTATon 06-28-2023 US OB INITIAL >or= 14 WEEKS; 1st GESTAT [place] [address] Patient: ANIRUDH WIGGINS Phone#: : 1995 Age: 28 Gender: F Pt. Type: Out Account: [id number] Location: 014 Ordering: YOON PEREIRA Exam Date: 06/28/2023/14:12 Family Phys: Charge Code: [id number] Physician: [place] Order #: [id number] Dose#: PROCEDURE: OB INITIAL >14 WEEKS ULTRASOUND, TRANSABDOMINAL COMPARISON: [facility], OB INITIAL >14 WEEKS, 08/16/2020, 10:45. INDICATIONS: Unsure of dates TECHNIQUE: Complete sonographic examination for obstetrical and evaluation were completed by transabdominal ultrasound. FINDINGS: NUMBER: Single. POSITION: Transverse lie, head to the maternal right. AMNIOTIC FLUID VOLUME: Normal for age. PLACENTA LOCATION: Posterior. BIPARIETAL DIAMETER: 16 weeks 4 days HEAD CIRCUMFERENCE: 16 weeks 2 days ABD CIRCUMFERENCE: 15 weeks 6 days FEMUR LENGTH: 16 weeks 0 days ESTIMATED WEIGHT: 141 grams/5 ounces CERVICAL LENGTH: 6.3 cm HEART RATE: 152 bpm ANATOMY: Anatomy is limited due to early gestational age. Upper and lower extremities and abdominal wall are visualized. ABNORMALITIES/OTHER: None. CLINICAL GA: 15 weeks 2 days CLINICAL DANISH: December 18, 2019 ULTRASOUND GA: 16 weeks 1 day ULTRASOUND DANISH: December 12, 2023 CONCLUSION: 1. SL IUP 16 weeks 1 day, DANISH December 12, 2023. Dictated by: Marija Perez MD on 06/28/2023 at 15:12 Approved by: Marija Perez MD on 06/28/2023 at 15:16 Normal [facility] THIN PREP ([place]) PAP WITH HP V REFLEXon 06-26-2023 THIN PREP (Amish) PAP WITH HPV REFLEX Normal [facility] Comment on above: Result Comment: _THI N PREP (Adult) PAP w HPV REFLEX_ Performed By: #### 2 25898 #### [facility],[address] [place] [address]9786 GC/CHLAM AMPLIFICATION [CCL] on 06-18-2023 GC/CHLAM AMPLIFICATION [CCL] Normal [facility] Comment on above: Result Comment: _GC/ CHLAMYDIA AMPLIFICATION_ SEE SCANNED REPORT Performed By: #### 2 88441 #### [facility],[address] [place] [address] 24738 HEP B SURFACE AG [CCL]on Hepatitis B Surf. Ag Negative Normal Negative [facility] Comment on above: Result Comment: [address] [address] Jordon Mcneal III, M.D. [id number] Performed By: #### 2 61796 #### [facility],[address] [place] [address] 92272 HIV 1/2 COMBO (AG/AB) [CCL]o n 06-18-2023 HIV 1/2 COMBO (AG/AB) [CCL] Normal [facility] Comment on above: Result Comment: _HIV 12 COMBO (AG/AB) [CCL]_ SEE SEPARATE REPORT Performed By: #### 2 87589 #### [facility],[address] [place] [address] 89098 RPR [CCL]on 06-18-2023 RESULT CRITICAL? NO Normal [facility] [place] Comment on above: Performed By: #### 2 98527 #### [facility],[address] [place] [address] 75705 Reagin Ab RPR Ql (S) Non-Reactive Normal Nonreactive [facility] Comment on above: Result Comment: Rapi d plasma reagin (RPR) test detects non-treponemal antibodies. RPR may be reactive in a variety of infectious and non-infectious conditions. Correlation with clinical picture and with treponemal antibody results is required for final interpretation. [place] [address] Jordon Mcneal III, M.D. [id number] Performed By: #### 2 99929 #### [facility],[address] [place] [address] 43392 RUBELLA IgG ANTIBODY [CCL]on 06-18-2023 Rubella IgG Ab, Qual Positive Normal Positive [facility] Comment on above: Result Comment: The result suggests recent or past exposure to Rubella virus or history of Rubella vaccination. Positive result may also be seen due to presence of passively-transferred antibodies. Please correlate with patient's history. [place] [address] Jordon Mcneal III, M.D. [id number] Performed By: #### 2 49339 #### [facility],[address] [place] [address] 87370 GC/CHLAM AMPLIFICATION [CCL] on 06-17-2023 CHLAMYDIA TRACHOMATIS(CT) Negative Normal Negative for Chlamydia tr [facility] Comment on above: Result Comment: SOUR CE: GENITAL [facility] [employer] [facility] [place] [address] Jordon Mcneal III, M.D. [id number] Performed By: #### 2 74992 #### [facility],[address] [place] [address] GCAMP Negative Normal Negative for Neisseria go [facility] Comment on above: Performed By: #### 2 20208 #### [facility],[address] [place] [address] BB TYPE & SCREENon 3 ABO A Normal [facility] Comment on above: Performed By: #### 2 87627 #### [facility],[address] [place] [address] ANTIBODY SCR Negative Normal [facility] Comment on above: Performed By: #### 2 84470 #### [facility],[address] [place] [address] BB TYPE & SCREEN Normal [facility] Comment on above: Result Comment: TYPE , Rh, AND SCREEN Performed By: #### 2 48231 #### [facility],[address] [place] [address] Rh Nom (Bld) Positive Normal [facility] Comment on above: Performed By: #### 2 02751 #### [facility],[address] [place] [address] CBC + DIFFon 06-15-2023 Baso # 0.10 x10EE3/UL Normal 0.00 - 0.10 [facility] Comment on above: Performed By: #### 2 36372 #### [facility],[address] [place] [address] Basophils/100 WBC (Bld) 0.7 % Normal 0.0 - 2.0 [facility] Comment on above: Performed By: #### 2 44503 #### [facility],[address] [place] [address] CBC + DIFF Normal [facility] Comment on above: Result Comment: CBC- COMPLETE BLOOD COUNT Performed By: #### 2 22928 #### [facility],[address] [place] [address] 66592 EO # 0.40 x10EE3/UL Normal 0.00 - 0.50 [facility] Comment on above: Performed By: #### 2 46115 #### [facility],[address] [place] [address] Eosinophils/100 WBC (Bld) 2.8 % Normal 0.0 - 7.0 [facility] Comment on above: Performed By: #### 2 65042 #### [facility],[address] [place] [address] Erythrocyte distribution width (RBC) [Ratio] 14.2 % Normal 12.0 - 15.6 [facility] Comment on above: Performed By: #### 2 46772 #### [facility],[address] [place] [address] Hematocrit (Bld) [Volume fraction] 36.9 % Normal 34.0 - 46.0 [facility] Comment on above: Performed By: #### 2 67260 #### [facility],[address] [place], [place] [id number] Hemoglobin (Bld) [Mass/Vol] 12.0 g/dL Normal 12.0 - 16.0 [facility] Comment on above: Performed By: #### 2 39570 #### [facility],[address] [place], [place] [id number] Lymph # 2.60 x10EE3/UL Normal 0.80 - 2.80 [facility] Comment on above: Performed By: #### 2 42745 #### [facility],[address] [place], [place] [id number] Lymphocytes/100 WBC (Bld) 19.5 % Low 20.0 - 45.0 [facility] Comment on above: Performed By: #### 2 59420 #### [facility],[address] [place] [address] MANUAL DIFF N/A Normal [facility] Comment on above: Performed By: #### 2 52163 #### [facility],[address] [place] [address] MCH (RBC) [Entitic mass] 28 pg Normal 27 - 33 [facility] Comment on above: Performed By: #### 2 12495 #### [facility],[address] [place] [address] MCHC 33 X10 3 Normal 32 - 36 [facility] Comment on above: Performed By: #### 2 66113 #### [facility],[address] [place] [address] MCV (RBC) [Entitic vol] 86 fL Normal 80 - 99 [facility] Comment on above: Performed By: #### 2 97649 #### [facility],[address] [place] [address] [place]dwell # 0.60 x10EE3/UL Normal 0.20 - 1.00 [facility] Comment on above: Performed By: #### 2 87025 #### [facility],[address] [place] [address] MONOS % 4.7 % Normal 0.0 - 10.0 [facility] Comment on above: Performed By: #### 2 73241 #### [facility],[address] [place] [address] Morphology Rosalio (Bld) [Interp] N/A Normal [facility] Comment on above: Result Comment: {CD] Performed By: #### 2 17870 #### [facility],[address] [place] [address] Neut # 9.50 x10EE3/UL High 1.50 - 7.10 [facility] Comment on above: Performed By: #### 2 06350 #### [facility],[address] [place] [address] Neutrophils/100 WBC (Bld) 72.3 % Normal 46.0 - 76.0 [facility] Comment on above: Performed By: #### 2 73532 #### [facility],[address] [place] [address] 52614 PLATELET 205 x10EE3/UL Normal 150 - 450 [facility] Comment on above: Performed By: #### 2 47127 #### [facility],[address] [place] [address] 96179 Platelet mean volume (Bld) [Entitic vol] 11.0 fL High 6.6 - 10.5 [facility] Comment on above: Result Comment: AUTO MATED DIFFERENTIAL Performed By: #### 2 00521 #### [facility],[address] [place] [address] 74242 RBC 4.29 x 10EE6/UL Normal 4.10 - 5.30 [facility] Comment on above: Performed By: #### 2 17165 #### [facility],[address] [place] [address] 92856 WBC 13.1 x 10EE3/UL High 4.5 - 10.8 [facility] Comment on above: Performed By: #### 2 08613 #### [facility],[address] [place] [address]647 T4-FREE (FREE THYROXINE)on 0 06-15-2023 Free T4 [Mass/Vol] 0.81 ng/dL Normal 0.76 - 1.46 [facility] Comment on above: Result Comment: P otential of falsely elevated results when biotin concentrations are > 10 ng/mL. Performed By: #### 2 54549 #### [facility],[address] [place] [address] 33750 TSHon 06-15-2023 TSH Qn 1.92 m[IU]/L Normal 0.35 - 3.74 [facility] Comment on above: Performed By: #### 2 59665 #### [facility],[address] [facility] [address] STREP A MOLECULAR (POC)on Procedural Control Valid [facility] Strep A (POCT) Negative Negative [facility] STREP A MOLECULAR (POC)on Procedural Control Valid [facility] Strep A (POCT) Negative Negative [facility] GC/Chlamydia Amp, Uron 09-16 Chlamydia Amplif, Ur Normal [facility] Comment on above: Result Comment: Nega tive for For screening asymptomatic women, a vaginal swab specimen (APTIMA vaginal swab 492303) is optimal. Urine specimens have reduced sensitivity for Chlamydia trachomatis or Neisseria gonorrhoeae infection in female patients without symptoms. This test was developed and its performance characteristics determined by [facility] [place] ([facility]). It has not been cleared or approved by the FDA. [facility] is regulated under CLIA as qualified to perform high complexity testing. This test is used for clinical purposes. It should not be regarded as investigational or for research. Chlamydia For screening asymptomatic women, a vaginal swab specimen (APTIMA vaginal swab 456534) is optimal. Urine specimens have reduced sensitivity for Chlamydia trachomatis or Neisseria gonorrhoeae infection in female patients without symptoms. This test was developed and its performance characteristics determined by [facility] [place] ([facility]). It has not been cleared or approved by the FDA. [facility] is regulated under CLIA as qualified to perform high complexity testing. This test is used for clinical purposes. It should not be regarded as investigational or for research. trachomatis by For screening asymptomatic women, a vaginal swab specimen (APTIMA vaginal swab 771218) is optimal. Urine specimens have reduced sensitivity for Chlamydia trachomatis or Neisseria gonorrhoeae infection in female patients without symptoms. This test was developed and its performance characteristics determined by [facility] [place] ([facility]). It has not been cleared or approved by the FDA. [facility] is regulated under CLIA as qualified to perform high complexity testing. This test is used for clinical purposes. It should not be regarded as investigational or for research. amplification. For screening asymptomatic women, a vaginal swab specimen (APTIMA vaginal swab 821701) is optimal. Urine specimens have reduced sensitivity for Chlamydia trachomatis or Neisseria gonorrhoeae infection in female patients without symptoms. This test was developed and its performance characteristics determined by [facility] [place] ( [facility]). It has not been cleared or approved by the FDA. [facility] is regulated under CLIA as qualified to perform high complexity testing. This test is used for clinical purposes. It should not be regarded as investigational or for research. Performed By: #### U GCCT #### [facility]ine Lab [address] [place], [place] [address] GC Amplification, Ur NGNEG Normal [facility] Comment on above: Performed By: #### U GCCT #### [facility] Routine Lab [address] [place] [address] HPVon 07-27-2020 HPV Interp Normal See Interp HPVN [facility] ([place] Comment on above: Order Comment: Order placed by AP_HPV_ORDER rule from [id number] Result Comment: High Risk HPV Typing: NEGATIVE HPV types 16, 18, 31, 33, 35, 39, 45, 51, 52, 56, 58, 59, 66 and 68 DNA were undetectable or below the pre-set threshold. The laina High-Risk HPV DNA Test is not intended for use as a screening device for Pap normal women under age 30 and is not intended to substitute for regular Pap screening. The laina High-Risk HPV DNA Test is designed to augment existing methods for the detection of cervical disease and should be used in conjunction with clinical information derived from other diagnostic and screening tests, physical examinations and full medical history in accordance with appropriate patient management procedures. NOTE: A negative result does not preclude the presence of HPV infection because results depend on adequate specimen collection, absence of inhibitors and sufficient DNA to be detected. See Interp HPVN Performed By: #### H PV #### [address] [address] HPV Source Cervix Normal [facility] ([place]) Comment on above: Order Comment: Order placed by AP_HPV_ORDER rule from [id number] Performed By: #### H PV #### [place] [address] [employer] Cytology Reporton 2019 [employer] Cytology Report . Pathology Reports Accession: Collected Date/Time: Received Date/Time: Pathologist: [id number] 07/19/2020 11:39 EDT 07/20/2020 18:00 EDT MD MAURO ROSAS [employer] Cytology Report SPECIMEN: Specimen Description: Liquid Prep w/ HPV Specimen: Cervical/Endocervica l Screening or Diagnostic: Screening RELEVANT HISTORY: LMP: 03-21-20 : Yes [id number] SPECIMEN ADEQUACY: SATISFACTORY FOR EVALUATION ENDOCERVICAL/TRANSFO RMATIONAL ZONE COMPONENT PRESENT INTERPRETATION/RESUL TS: NEGATIVE FOR INTRAEPITHELIAL LESION OR MALIGNANCY ADJUNCTIVE TESTING: HIGH RISK HPV DNA TESTING ORDERED, REPORT TO FOLLOW UNDER SEPARATE COVER ORGANISMS: SHIFT IN ZACH CONSISTENT WITH BACTERIAL VAGINOSIS. COMMENT: This Pap Test was successfully processed and evaluated with the assistance of the [employer] ThinPrep Test Imaging System. Electronically Signed by Pathology report verified by [facility] Screened by: MOMO MGS Electronically signed by MAURO ROSAS MD Sign-Out Date: 07/26/2020 15:55 Performing Lab: [place] [address] [place] Disclaimer The Pap test is a screening test for cervical cancer. As evidenced by published data, it is subject to both inherent false negative and false positive results. Your patient's results should be interpreted in context with pertinent clinical history including gynecological examination. Normal [facility] ([place]) Comment on above: Performed By: #### G YCR #### [place] [address] GC/Chlamydia Amp, Uron 07-23 Chlamydia Amplif, Ur Normal [facility] Comment on above: Result Comment: Posi tive for In low prevalence populations, the likelihood of a false positive may be higher than a true positive. Retesting by another method may be appropriate for patients who lack risk factors or clinical signs and symptoms consistent with infection. For screening asymptomatic women, a vaginal swab specimen (APTIMA vaginal swab 347265) is optimal. Urine specimens have reduced sensitivity for Chlamydia trachomatis or Neisseria gonorrhoeae infection in female patients without symptoms. This test was developed and its performance characteristics determined by [facility] [place] ([facility]). It has not been cleared or approved by the FDA. [facility] is regulated under CLIA as qualified to perform high complexity testing. This test is used for clinical purposes. It should not be regarded as investigational or for research. Chlamydia In low prevalence populations, the likelihood of a false positive may be higher than a true positive. Retesting by another method may be appropriate for patients who lack risk factors or clinical signs and symptoms consistent with infection. For screening asymptomatic women, a vaginal swab specimen (APTIMA vaginal swab 354860) is optimal. Urine specimens have reduced sensitivity for Chlamydia trachomatis or Neisseria gonorrhoeae infection in female patients without symptoms. This test was developed and its performance characteristics determined by [facility] ([facility]). It has not been cleared or approved by the FDA. [facility] is regulated under CLIA as qualified to perform high complexity testing. This test is used for clinical purposes. It should not be regarded as investigational or for research. trachomatis by In low prevalence populations, the likelihood of a false positive may be higher than a true positive. Retesting by another method may be appropriate for patients who lack risk factors or clinical signs and symptoms consistent with infection. For screening asymptomatic women, a vaginal swab specimen (APTIMA vaginal swab 434087) is optimal. Urine specimens have reduced sensitivity for Chlamydia trachomatis or Neisseria gonorrhoeae infection in female patients without symptoms. This test was developed and its performance characteristics determined by [facility] [place] ([facility]). It has not been cleared or approved by the FDA. [facility] is regulated under CLIA as qualified to perform high complexity testing. This test is used for clinical purposes. It should not be regarded as investigational or for research. amplification.(*) In low prevalence populations, the likelihood of a false positive may be higher than a true positive. Retesting by another method may be appropriate for patients who lack risk factors or clinical signs and symptoms consistent with infection. For screening asymptomatic women, a vaginal swab specimen (APTIMA vaginal swab 341547) is optimal. Urine specimens have reduced sensitivity for Chlamydia trachomatis or Neisseria gonorrhoeae infection in female patients without symptoms. This test was developed and its performance characteristics determined by [facility] [place] ([facility]). It has not been cleared or approved by the FDA. [facility] is regulated under CLIA as qualified to perform high complexity testing. This test is used for clinical purposes. It should not be regarded as investigational or for research. GC Amplification, Ur NGPOS Normal [facility] RPRon 07-21-2020 Reagin Ab RPR Ql (S) NR Normal Non Reactive [facility] Comment on above: Performed By: #### R UBIGG, HBSAG #### [facility] Routine Lab [address] [place] [id number] #### RPR #### [facility] Immuno Assay [address] [place], [place] [address] Hepatitis B Surf. Agon 07-20 Hepatitis B Surf. Ag NEGAT Normal Negative [facility] Comment on above: Performed By: #### R UBIGG, HBSAG #### [facility] Routine Lab [address] [place] [address] #### RPR #### [facility] Immuno Assay [address] [place] [phone] Rubella IgG Antibodyon 07-20 Rubella IgG Ab 1.13 Index Value Normal [facility] Comment on above: Performed By: #### R UBIGG, HBSAG #### [facility] Routine Lab [address] [place] [phone] #### RPR #### [facility] Immuno Assay [address] [place] [phone] Rubella IgG Ab, Qual Positive Abnormal Negative [facility] Comment on above: Performed By: #### R UBIGG, HBSAG #### [facility] Routine Lab [address] [place] [phone] #### RPR #### [facility] Immuno Assay [address] [place] [phone] Vital Signs Date Time Vital Sign Value Performing Clinician Faci lity 11-20-2024 13:57-0500 Body mass index (BMI) [Ratio] 39.39 kg/m2 Loree Spangler CLINICAL RN.POINTER MACHINE OPERATOR Work Phone: [facility] 09-24-2024 13:57-0500 Body temperature 98.91 [degF] Loree Spangler CLINICAL RN.POINTER MACHINE OPERATOR Work Phone: [facility] 09-24-2024 13:57-0500 Body weight 117.5 kg Loree Spangler CLINICAL RN.POINTER MACHINE OPERATOR Work Phone: [facility] 09-24-2024 13:57-0500 Diastolic blood pressure 80 mm[Hg] Loree Spangler CLINICAL RN.POINTER MACHINE OPERATOR Work Phone: [facility] 09-24-2024 13:57-0500 Heart rate 110 /min Loree Spangler CLINICAL RN.POINTER MACHINE OPERATOR Work Phone: [facility] 09-24-2024 13:57-0500 Respiratory rate 16 /min Loree Spangler CLINICAL RN.POINTER MACHINE OPERATOR Work Phone: [facility] 09-24-2024 13:57-0500 SaO2% (BldA) [Mass fraction] 99 % Loree Spangler CLINICAL RN.POINTER MACHINE OPERATOR Work Phone: [facility] 09-24-2024 13:57-0500 Systolic blood pressure 122 mm[Hg] Loree Spangler CLINICAL RN.POINTER MACHINE OPERATOR Work Phone: [facility] 03-02-2024 14:20-0400 Body mass index (BMI) [Ratio] 36.87 kg/m2 Marah Marcos CLINICAL RN.POINTER MACHINE OPERATOR Work Phone: [facility] 03-02-2024 14:20-0400 Body temperature 98.6 [degF] Marah Marcos CLINICAL RN.POINTER MACHINE OPERATOR Work Phone: [facility] 03-02-2024 14:20-0400 Body weight 110 kg Marah Marcos CLINICAL RN.POINTER MACHINE OPERATOR Work Phone: [facility] 03-02-2024 14:20-0400 Diastolic blood pressure 70 mm[Hg] Marah Marcos CLINICAL RN.POINTER MACHINE OPERATOR Work Phone: [facility] 03-02-2024 14:20-0400 Heart rate 88 /min Marah Marcos CLINICAL RN.POINTER MACHINE OPERATOR Work Phone: [facility] 03-02-2024 14:20-0400 Respiratory rate 16 /min Marah Marcos CLINICAL RN.POINTER MACHINE OPERATOR Work Phone: [facility] 03-02-2024 14:20-0400 SaO2% (BldA) [Mass fraction] 98 % Marah Marcos CLINICAL RN.POINTER MACHINE OPERATOR Work Phone: [facility] 03-02-2024 14:20-0400 Systolic blood pressure 122 mm[Hg] Marah Marcos CLINICAL RN.POINTER MACHINE OPERATOR Work Phone: [facility] 01-05-2024 14:03-0500 Body temperature 97.3 [degF] Janiya Athy PA-C Work Phone: [facility] 01-05-2024 14:03-0500 Body weight 111.86 kg Janiya Athy PA-C Work Phone: [facility] 01-05-2024 14:03-0500 Diastolic blood pressure 88 mm[Hg] Janiya Athy PA-C Work Phone: [facility] 01-05-2024 14:03-0500 Heart rate 75 /min Janiya Athy PA-C Work Phone: [facility] 01-05-2024 14:03-0500 Respiratory rate 21 /min Janiya Athy PA-C Work Phone: [facility] 01-05-2024 14:03-0500 SaO2% (BldA) [Mass fraction] 98 % Janiya Athy PA-C Work Phone: [facility] 01-05-2024 14:03-0500 Systolic blood pressure 110 mm[Hg] Janiya Athy PA-C Work Phone: [facility] 10-28-2023 12:47-0500 Body temperature 100.8 [degF] Emilee Praisler-Wood CLINICAL RN.POINTER MACHINE OPERATOR Work Phone: [facility] 10-28-2023 12:47-0500 Body weight 119.75 kg Emilee Praisler-Wood CLINICAL RN.POINTER MACHINE OPERATOR Work Phone: [facility] 10-28-2023 12:47-0500 Diastolic blood pressure 70 mm[Hg] Emilee Praisler-Wood CLINICAL RN.POINTER MACHINE OPERATOR Work Phone: [facility] 10-28-2023 12:47-0500 Heart rate 88 /min Emilee Praisler-Wood CLINICAL RN.POINTER MACHINE OPERATOR Work Phone: [facility] 10-28-2023 12:47-0500 Respiratory rate 16 /min Emilee Praisler-Wood CLINICAL RN.POINTER MACHINE OPERATOR Work Phone: [facility] 10-28-2023 12:47-0500 SaO2% (BldA) [Mass fraction] 99 % Emilee Praisler-Wood CLINICAL RN.POINTER MACHINE OPERATOR Work Phone: [facility] 10-28-2023 12:47-0500 Systolic blood pressure 122 mm[Hg] Emilee Praisler-Wood CLINICAL RN.POINTER MACHINE OPERATOR Work Phone: [facility] 01-06-2023 14:23-0500 Body temperature 98.6 [degF] Cindy Lopez CLINICAL RN.POINTER MACHINE OPERATOR Work Phone: [facility] 01-06-2023 14:23-0500 Body weight 112.31 kg Cindy Lopez CLINICAL RN.POINTER MACHINE OPERATOR Work Phone: [facility] 01-06-2023 14:23-0500 Diastolic blood pressure 74 mm[Hg] Cindy Lopez CLINICAL RN.POINTER MACHINE OPERATOR Work Phone: [facility] 01-06-2023 14:23-0500 Heart rate 76 /min Cindy Lopez CLINICAL RN.POINTER MACHINE OPERATOR Work Phone: [facility] 01-06-2023 14:23-0500 Respiratory rate 18 /min Cindy Lopez CLINICAL RN.POINTER MACHINE OPERATOR Work Phone: [facility] 01-06-2023 14:23-0500 SaO2% (BldA) [Mass fraction] 99 % Cindy Lopez CLINICAL RN.POINTER MACHINE OPERATOR Work Phone: [facility] 01-06-2023 14:23-0500 Systolic blood pressure 122 mm[Hg] Cindy Lopez CLINICAL RN.POINTER MACHINE OPERATOR Work Phone: [facility] 12-13-2022 11:07-0500 Body temperature 97.39 [degF] Maureen Reevesmyles CLINICAL RN.POINTER MACHINE OPERATOR Work Phone: [facility] 12-13-2022 11:07-0500 Body weight 112.04 kg Maureen Reevesmyles CLINICAL RN.POINTER MACHINE OPERATOR Work Phone: [facility] 12-13-2022 11:07-0500 Diastolic blood pressure 72 mm[Hg] Maureen Reevesmyles CLINICAL RN.POINTER MACHINE OPERATOR Work Phone: [facility] 12-13-2022 11:07-0500 Heart rate 90 /min Maureen Nix CLINICAL RN.POINTER MACHINE OPERATOR Work Phone: [facility] 12-13-2022 11:07-0500 Respiratory rate 16 /min Maureen Reevesmyles CLINICAL RN.POINTER MACHINE OPERATOR Work Phone: [facility] 12-13-2022 11:07-0500 SaO2% (BldA) [Mass fraction] 99 % Maureen Reevesmyles CLINICAL RN.POINTER MACHINE OPERATOR Work Phone: [facility] 12-13-2022 11:07-0500 Systolic blood pressure 122 mm[Hg] [facility] RN.POINTER MACHINE OPERATOR Work Phone: [facility] Encounters Encounter Date Encounter Type Care Provider Facility Start: 09-24-2024 End: 09-24-2024 Patient encounter procedure Loree Spangler CLINICAL RN.POINTER MACHINE OPERATOR Work Phone: [facility] Comment on above: Pain, dental (Primar y Dx) Start: 09-24-2024 End: 09-24-2024 ambulatory [facility] Facility:[facility] Start: 03-02-2024 End: 03-02-2024 ambulatory [facility] Facility:[facility] Start: 03-02-2024 End: 03-02-2024 Patient encounter procedure Marah Marcos CLINICAL RN.POINTER MACHINE OPERATOR Work Phone: [facility] Comment on above: Pain, dental (Primar y Dx) Start: 01-05-2024 End: 01-05-2024 ambulatory MAUREEN MARTINEZ Facility:[facility] Start: 01-05-2024 End: 01-05-2024 Patient encounter procedure Janiya Gomez PA-C Work Phone: [facility] Comment on above: Dental infection (Pr imary Dx) Start: 12-07-2023 End: 12-08-2023 [facility] Start: 12-03-2023 End: 12-03-2023 ambulatory [facility] Start: 10-28-2023 End: 10-28-2023 [facility] Start: 10-28-2023 End: 10-28-2023 Patient encounter procedure Emilee Jarrell CLINICAL RN.POINTER MACHINE OPERATOR Work Phone: [facility] Comment on above: Viral URI (Primary D x); Sore throat Start: 10-22-2023 End: 10-22-2023 ambulatory [facility] Start: 09-17-2023 End: 09-17-2023 ambulatory [facility] Start: 08-13-2023 End: 08-13-2023 [facility] Start: 06-28-2023 End: 06-28-2023 [facility] Start: 06-15-2023 End: 06-15-2023 ambulatory [facility] Start: 01-06-2023 End: 01-06-2023 Patient encounter procedure Cindy Lopez CLINICAL RN.POINTER MACHINE OPERATOR Work Phone: [facility] Comment on above: Sore throat (Primary Dx); Rhinosinusitis Start: 12-13-2022 End: 12-13-2022 Office outpatient visit 15 minutes Maureen Dinah CLINICAL RN.POINTER MACHINE OPERATOR Work Phone: [facility] Comment on above: Sore throat (Primary Dx); URI with cough and congestion Start: 01-12-2014 End: 06-03-2014 Patient requested procedure Marah Marcos SHARIF.POINTER MACHINE OPERATOR Work Phone: [facility] Procedures Date Procedure Procedure Detail Performing Clinician Start: 01-06-2023 STREP A MOLECULAR (POC) Cindy Lopez CLINICAL RN.POINTER MACHINE OPERATOR Work Phone: Start: 12-13-2022 STREP A MOLECULAR (POC) Loree Spangler CLINICAL RN.POINTER MACHINE OPERATOR Work Phone: Plan of Treatment Date Care Activity Detail Author Start: 05-24-2025 Urine microalbumin profile [facility] Start: 07-06-2024 Covid-19 Vaccine ( season) Covid-19 Vaccine () [facility] Start: 07-06-2024 Influenza vaccination [facility] Start: 11-05-2023 Behavioral Health Screening Behavioral Health Screening [facility] Start: 11-05-2023 Depression Assessment Depression Ass essment [facility] Start: 07-06-2023 Covid-19 Vaccine ( season) Covid-19 Vaccine ( season) [facility] Start: 07-06-2023 Influenza vaccination Influenza Vacc ine (#1) [facility] Start: 01-06-2023 End: 01-20-2023 Influenza virus A and B RNA and SARS-CoV-2 (COVID-19) N gene panel - Respiratory specimen by HUEY with probe detection COVID WITH FLUA+B, ROUTINE Microbiology Routine Rhinosinusitis Expected: 01/06/2023, Expires: 01/20/2023 [facility] Work Phone: Comment on above: Expected: 01/06/2023 , Expires: 01/20/2023 Start: 11-05-2022 DEPRESSION ASSESSMENT DEPRESSION ASS ESSMENT [facility] Start: 07-06-2022 Influenza vaccination INFLUENZA (#1) [facility] Start: 01-13-2020 PAP TESTING PAP TESTING [facility] Start: 01-13-2020 Screening for malign ant neoplasm of cervix [facility] Start: 2012 Depression Screening Depression Scre ening [facility] Start: 2000 PNEUMOCOCCAL (1 - PCV) PNEUMOCOCCAL (1 - PCV) [facility] Start: 2000 Pneumococcal vaccination Pneumococcal Vaccine (1 of 2 - PCV) [facility] Start: 1994 COVID-19 VACCINE (#1) COVID-19 VACCI NE (#1) [facility] Start: 1994 HEPATITIS B (1 of 3 - 3-dose series) HEPATITIS B (1 of 3 - 3-dose series) [facility] Influenza virus A an d B RNA and SARS-CoV-2 (COVID-19) N gene panel - Respiratory specimen by HUEY with probe detection COVID & INFLUENZA A/B NAAT, ROUTINE Microbiology Routine Viral URI Ordered: 10/28/2023 [facility] Work Phone: Comment on above: Ordered: 10/28/2023 Immunizations Immunization Date Immunization Notes Care Provider Suri pham 10-22-2015 influenza, injectabl e, quadrivalent, contains preservative Maureen Nix CLINICAL RN.POINTER MACHINE OPERATOR Work Phone: [facility] 10-22-2015 influenza virus vaccine, unspecified formulation Emilee Jarrell CLINICAL RN.POINTER MACHINE OPERATOR Work Phone: [facility] 05-24-2015 tetanus toxoid, reduced diphtheria toxoid, and acellular pertussis vaccine, adsorbed Maureen Nix CLINICAL RN.POINTER MACHINE OPERATOR Work Phone: [facility] 08-14-2014 measles, mumps and rubella virus vaccine Maureen Pendlemyles CLINICAL RN.POINTER MACHINE OPERATOR Work Phone: [facility] Work Phone: Payers Date Payer Category Payer Medicaid [employer] [facility] [id number] 2022-Present [phone] [address] [place] [address] Medicaid [id number] 2022 Unknown [id number] 2017 Private Health Insurance [facility] [employer] [employer] [id number] 2017-Present [phone] [address] [place] [address] HMO [id number] 1994 Unknown [id number] 1994 Unknown [id number] 1994 Unknown [id number] 1994 Unknown [id number] 1994 Unknown [id number] 1994 Unknown [id number] 1994 Unknown [id number] Social History Date Type Detail Facility Start: 05-22-2018 End: 09-24-2024 Tobacco smoking status VAIS Smokes tobacco daily [facility] History of tobacco use [facility] Start: 05-22-2018 End: 10-11-2020 Cigarettes smoked current (pack per day) - Reported 1 [facility] Start: 05-22-2018 End: 09-24-2024 Tobacco use and exposure Smokeless tobacco non-user [facility] Start: 12-13-2022 End: 09-24-2024 Alcohol intake Current drinker of alcohol (finding) [facility] Start: 05-24-2015 Alcohol Comment rarely [facility] Start: 1994 Sex Assigned At Not on file [facility] Start: 10-11-2020 End: 10-28-2023 Tobacco use panel [facility] National Score (1-10 0), lower number is lower risk Not on file [facility] Clinical Notes 10-22-2015 to 09-24-2024 Loree Spangler APRN.JERICA - 09/24/2024 2:00 PM Marah Mcintosh APRN.POINTER MACHINE OPERATOR - 03/02/2024 2:37 PM Janiya Pittman PA-C - 01/05/2024 2:11 PM Emilee Narayan APRN.JERICA - 10/28/2023 1:04 PM EST Note Date & Type Note Facility 09-24-2024 Note HNO ID: [id number] Author: LOREE SPANGLER APRN.JERICA Service: ? Author Type: Nurse Practitioner Type: Progress Notes Filed: 09/24/2024 14:10 Note Text: This note was created using [employer]. Subjective Anirudh Wiggins is a 29 year old female. 29 year old female with PMH anxiety and depression presents for dental complaints Acute on chronic Left lower The tooth itself has been messed up for a while States this bout started approximately 3 days ago +pain +sensitivity to hot and cold Pain with chewing Denies fever or chills Denies difficulty handling secretions. Denies seeking medical treatment prior to today She goes to a [place] dentist that is walk in. The history is provided by the patient. No american sign language teacher was used. Dental Problem This is a recurrent problem. The current episode started in the past 7 days. The problem occurs constantly. The problem has been gradually worsening. Pertinent negatives include no abdominal pain, anorexia, arthralgias, change in bowel habit, chest pain, chills, congestion, coughing, diaphoresis, fatigue, fever, headaches, joint swelling, myalgias, nausea, neck pain, numbness, rash, sore throat, swollen glands, urinary symptoms, vertigo, visual change, vomiting or weakness. Nothing aggravates the symptoms. She has tried nothing for the symptoms. The treatment provided no relief. PAST MEDICAL HISTORY Diagnosis Date Anemia DEPRESSION GBS (group B streptococcus) UTI complicating 07/17/2014 07/17/14 - treat in labor - KJ Rubella non-immune status, antepartum 01/13/2014 PAST SURGICAL HISTORY Procedure Laterality Date PAST SURGICAL HISTORY OF 2008 D and C ALLERGIES Patient has no known allergies. MEDICATIONS acetaminophen (TYLENOL) 325 mg tablet Take 650 mg by mouth every 6 hours as needed. amoxicillin-clavulanate potassium (AUGMENTIN) 875-125 mg per tablet Take 1 tablet by mouth two times a day for 10 days. FAMILY HISTORY Problem Relation Age of Onset Hypertension Mother Arthritis Mother Heart Mother IRREGULAR HEARTBEAT Alcohol/Drug Father Psychiatry Father other (DEMENTIA) Paternal Grandmother Social History Tobacco Use Smoking status: Every Day Current packs/day: 1.00 Average packs/day: 1 pack/day for 5.0 years (5.0 ttl pk-yrs) Types: Cigarettes Smokeless tobacco: Never Substance Use Topics Alcohol use: Yes Comment: rarely Drug use: No Review of Systems Constitutional: Negative for chills, diaphoresis, fatigue and fever. HENT: Negative for congestion and sore throat. Respiratory: Negative for cough. Cardiovascular: Negative for chest pain. Gastrointestinal: Negative for abdominal pain, anorexia, change in bowel habit, nausea and vomiting. Musculoskeletal: Negative for arthralgias, joint swelling, myalgias and neck pain. Skin: Negative for rash. Neurological: Negative for vertigo, weakness, numbness and headaches. Objective BP 122/80 Pulse 110 Temp 37.2 ?C (98.9 ?F) Resp 16 Wt 117.5 kg (259 lb 0.7 oz) LMP 10/11/2016 SpO2 99% BMI 39.39 kg/m? Physical Exam Vitals and nursing note reviewed. Constitutional: General: She is not in acute distress. Appearance: Normal appearance. She is normal weight. She is not ill-appearing, toxic-appearing or diaphoretic. HENT: Head: Normocephalic and atraumatic. Right Ear: Ear canal and external ear normal. Left Ear: Ear canal and external ear normal. Nose: Nose normal. No congestion or rhinorrhea. Mouth/Throat: Mouth: Mucous membranes are moist. Pharynx: No oropharyngeal exudate or posterior oropharyngeal erythema. Comments: No trismus No muffled voice Uvula midline Handling secretions Eyes: General: Right eye: No discharge. Left eye: No discharge. Extraocular Movements: Extraocular movements intact. Conjunctiva/sclera: Conjunctivae normal. Pupils: Pupils are equal, round, and reactive to light. Cardiovascular: Rate and Rhythm: Normal rate and regular rhythm. Pulses: Normal pulses. Heart sounds: Normal heart sounds. No murmur heard. No friction rub. Pulmonary: Effort: Pulmonary effort is normal. No respiratory distress. Breath sounds: Normal breath sounds. No stridor. No wheezing, rhonchi or rales. Chest: Chest wall: No tenderness. Abdominal: General: Abdomen is flat. There is no distension. Palpations: Abdomen is soft. There is no mass. Tenderness: There is no abdominal tenderness. There is no right CVA tenderness, left CVA tenderness, guarding or rebound. Hernia: No hernia is present. Musculoskeletal: General: No swelling, tenderness, deformity or signs of injury. Normal range of motion. Cervical back: Normal range of motion and neck supple. No rigidity. Right lower leg: No edema. Left lower leg: No edema. Lymphadenopathy: Cervical: No cervical adenopathy. Skin: General: Skin is warm and dry. Coloration: Skin is not jaundiced or pale. Findings: No br (more content not included)... [facility] 09-24-2024 History of Presen t illness Narrative Images from the original note were not included. This note was created using [employer]. Subjective Anirudh Wiggins is a 29 year old female. 29 year old female with PMH anxiety and depression presents for dental complaints Acute on chronic Left lower The tooth itself has been messed up for a while States this bout started approximately 3 days ago +pain +sensitivity to hot and cold Pain with chewing Denies fever or chills Denies difficulty handling secretions. Denies seeking medical treatment prior to today She goes to a [place] dentist that is walk in. The history is provided by the patient. No american sign language teacher was used. Dental Problem This is a recurrent problem. The current episode started in the past 7 days. The problem occurs constantly. The problem has been gradually worsening. Pertinent negatives include no abdominal pain, anorexia, arthralgias, change in bowel habit, chest pain, chills, congestion, coughing, diaphoresis, fatigue, fever, headaches, joint swelling, myalgias, nausea, neck pain, numbness, rash, sore throat, swollen glands, urinary symptoms, vertigo, visual change, vomiting or weakness. Nothing aggravates the symptoms. She has tried nothing for the symptoms. The treatment provided no relief. PAST MEDICAL HISTORY Diagnosis Date Anemia DEPRESSION GBS (group B streptococcus) UTI complicating 07/17/2014 07/17/14 - treat in labor - DENNIS Rubella non-immune status, antepartum 01/13/2014 PAST SURGICAL HISTORY Procedure Laterality Date PAST SURGICAL HISTORY OF 2008 D and C ALLERGIES Patient has no known allergies. MEDICATIONS acetaminophen (TYLENOL) 325 mg tablet Take 650 mg by mouth every 6 hours as needed. amoxicillin-clavulanate potassium (AUGMENTIN) 875-125 mg per tablet Take 1 tablet by mouth two times a day for 10 days. FAMILY HISTORY Problem Relation Age of Onset Hypertension Mother Arthritis Mother Heart Mother IRREGULAR HEARTBEAT Alcohol/Drug Father Psychiatry Father other (DEMENTIA) Paternal Grandmother Social History Tobacco Use Smoking status: Every Day Current packs/day: 1.00 Average packs/day: 1 pack/day for 5.0 years (5.0 ttl pk-yrs) Types: Cigarettes Smokeless tobacco: Never Substance Use Topics Alcohol use: Yes Comment: rarely Drug use: No Review of Systems Constitutional: Negative for chills, diaphoresis, fatigue and fever. HENT: Negative for congestion and sore throat. Respiratory: Negative for cough. Cardiovascular: Negative for chest pain. Gastrointestinal: Negative for abdominal pain, anorexia, change in bowel habit, nausea and vomiting. Musculoskeletal: Negative for arthralgias, joint swelling, myalgias and neck pain. Skin: Negative for rash. Neurological: Negative for vertigo, weakness, numbness and headaches. Objective BP 122/80 Pulse 110 Temp 37.2 C (98.9 F) Resp 16 Wt 117.5 kg (259 lb 0.7 oz) LMP 10/11/2016 SpO2 99% BMI 39.39 kg/m Physical Exam Vitals and nursing note reviewed. Constitutional: General: She is not in acute distress. Appearance: Normal appearance. She is normal weight. She is not ill-appearing, toxic-appearing or diaphoretic. HENT: Head: Normocephalic and atraumatic. Right Ear: Ear canal and external ear normal. Left Ear: Ear canal and external ear normal. Nose: Nose normal. No congestion or rhinorrhea. Mouth/Throat: Mouth: Mucous membranes are moist. Pharynx: No oropharyngeal exudate or posterior oropharyngeal erythema. Comments: No trismus No muffled voice Uvula midline Handling secretions Eyes: General: Right eye: No discharge. Left eye: No discharge. Extraocular Movements: Extraocular movements intact. Conjunctiva/sclera: Conjunctivae normal. Pupils: Pupils are equal, round, and reactive to light. Cardiovascular: Rate and Rhythm: Normal rate and regular rhythm. Pulses: Normal pulses. Heart sounds: Normal heart sounds. No murmur heard. No friction rub. Pulmonary: Effort: Pulmonary effort is normal. No respiratory distress. Breath sounds: Normal breath sounds. No stridor. No wheezing, rhonchi or rales. Chest: Chest wall: No tenderness. Abdominal: General: Abdomen is flat. There is no distension. Palpations: Abdomen is soft. There is no mass. Tenderness: There is no abdominal tenderness. There is no right CVA tenderness, left CVA tenderness, guarding or rebound. Hernia: No hernia is present. Musculoskeletal: General: No swelling, tenderness, deformity or signs of injury. Normal range of motion. Cervical back: Normal range of motion and neck supple. No rigidity. Right lower leg: No edema. Left lower leg: No edema. Lymphadenopathy: Cervical: No cervical adenopathy. Skin: General: Skin is warm and dry. Coloration: Skin is not jaundiced or pale. Findings: No bruising, erythema, lesion or rash. Neurological: General: No focal deficit present. Mental Status: She is alert and oriented to person, place, and time. Cranial Nerves: No cranial nerve deficit. Sensory: No sensory deficit. Motor: No weakness. Coordination: Coordination normal. Gait: Gait normal. Psychiatric: Mood and Affect: Mood normal. Behavior: Behavior normal. Thought Content: Thought content normal. Judgment: Judgment normal. Assessment and Plan ASSESSMENT/PLAN: 1. Pain, dental - ICD9: 525.9, ICD10: K08.89 Acute on chronic Ongoing thing No red flags RX Augmentin F/U with dentist PATRIC Discussed signs and sx to seek ED Loree Spangler APRN.POINTER MACHINE OPERATOR documented in this encounter [facility] 03-02-2024 Note HNO ID: [id number] Author: MARAH MARCOS APRN.CNP Service: ? Author Type: Nurse Practitioner Type: Progress Notes Filed: 03/02/2024 14:58 Note Text: Subjective HPI HPI Anirudh Wiggins is a 28 year old female who presents today for CC of dental pain. This started 2 days ago. Has tried otc medication for relief. Symptoms are worsened by nothing. Risk factors hx of dental infections, tx with atb for this tooth few month ago, did not see dentist after treatment. Denies possibility of being . .Patient presents with: Dental Problem: bottom right side tooth pain with swelling x 2 days PAST MEDICAL HISTORY Diagnosis Date Anemia DEPRESSION GBS (group B streptococcus) UTI complicating 07/17/2014 07/17/14 - treat in labor - KJ Rubella non-immune status, antepartum 01/13/2014 PAST SURGICAL HISTORY Procedure Laterality Date PAST SURGICAL HISTORY OF 2007 D and C ALLERGIES Patient has no known allergies. MEDICATIONS acetaminophen (TYLENOL) 325 mg tablet Take 650 mg by mouth every 6 hours as needed. amoxicillin-clavulanate potassium (AUGMENTIN) 875-125 mg per tablet Take 1 tablet by mouth two times a day for 10 days. FAMILY HISTORY Problem Relation Age of Onset Hypertension Mother Arthritis Mother Heart Mother IRREGULAR HEARTBEAT Alcohol/Drug Father Psychiatry Father other (DEMENTIA) Paternal Grandmother Social History Tobacco Use Smoking status: Every Day Packs/day: 1.00 Years: 5.00 Additional pack years: 0.00 Total pack years: 5.00 Types: Cigarettes Smokeless tobacco: Never Substance Use Topics Alcohol use: Yes Comment: rarely Drug use: No ROS Objective Blood pressure 122/70, pulse 88, temperature 37 ?C (98.6 ?F), resp. rate 16, weight 110 kg (242 lb 8.1 oz), last menstrual period 10/11/2016, SpO2 98%. Physical Exam Constitutional: General: She is not in acute distress. Appearance: She is not toxic-appearing or diaphoretic. HENT: Head: Normocephalic and atraumatic. Mouth/Throat: Pulmonary: Effort: Pulmonary effort is normal. No accessory muscle usage or respiratory distress. Lymphadenopathy: Cervical: No cervical adenopathy. Right cervical: No superficial cervical adenopathy. Left cervical: No superficial cervical adenopathy. Neurological: Mental Status: She is alert and oriented to person, place, and time. ASSESSMENT/PLAN: 1. Pain, dental - ICD9: 525.9, ICD10: K08.89 Take medication as ordered See dentist patric Follow up if signs of infection worsen - AMOXICILLIN 875 MG-POTASSIUM CLAVULANATE 125 MG TABLET Marah Marcos APRN.POINTER MACHINE OPERATOR [facility] 03-02-2024 History of Presen t illness Narrative Images from the original note were not included. Subjective HPI HPI Anirudh Wiggins is a 28 year old female who presents today for CC of dental pain. This started 2 days ago. Has tried otc medication for relief. Symptoms are worsened by nothing. Risk factors hx of dental infections, tx with atb for this tooth few month ago, did not see dentist after treatment. Denies possibility of being . .Patient presents with: Dental Problem: bottom right side tooth pain with swelling x 2 days PAST MEDICAL HISTORY Diagnosis Date Anemia DEPRESSION GBS (group B streptococcus) UTI complicating 07/17/2014 07/17/14 - treat in labor - KJ Rubella non-immune status, antepartum 01/13/2014 PAST SURGICAL HISTORY Procedure Laterality Date PAST SURGICAL HISTORY OF 2007 D and C ALLERGIES Patient has no known allergies. MEDICATIONS acetaminophen (TYLENOL) 325 mg tablet Take 650 mg by mouth every 6 hours as needed. amoxicillin-clavulanate potassium (AUGMENTIN) 875-125 mg per tablet Take 1 tablet by mouth two times a day for 10 days. FAMILY HISTORY Problem Relation Age of Onset Hypertension Mother Arthritis Mother Heart Mother IRREGULAR HEARTBEAT Alcohol/Drug Father Psychiatry Father other (DEMENTIA) Paternal Grandmother Social History Tobacco Use Smoking status: Every Day Packs/day: 1.00 Years: 5.00 Additional pack years: 0.00 Total pack years: 5.00 Types: Cigarettes Smokeless tobacco: Never Substance Use Topics Alcohol use: Yes Comment: rarely Drug use: No ROS Objective Blood pressure 122/70, pulse 88, temperature 37 C (98.6 F), resp. rate 16, weight 110 kg (242 lb 8.1 oz), last menstrual period 10/11/2016, SpO2 98%. Physical Exam Constitutional: General: She is not in acute distress. Appearance: She is not toxic-appearing or diaphoretic. HENT: Head: Normocephalic and atraumatic. Mouth/Throat: Pulmonary: Effort: Pulmonary effort is normal. No accessory muscle usage or respiratory distress. Lymphadenopathy: Cervical: No cervical adenopathy. Right cervical: No superficial cervical adenopathy. Left cervical: No superficial cervical adenopathy. Neurological: Mental Status: She is alert and oriented to person, place, and time. ASSESSMENT/PLAN: 1. Pain, dental - ICD9: 525.9, ICD10: K08.89 Take medication as ordered See dentist patric Follow up if signs of infection worsen - AMOXICILLIN 875 MG-POTASSIUM CLAVULANATE 125 MG TABLET Marah Marcos APRN.POINTER MACHINE OPERATOR documented in this encounter [facility] 01-05-2024 Note HNO ID: [id number] Author: JANIYA GOMEZ PA-C Service: ? Author Type: Physician Barge Captain Type: Progress Notes Filed: 01/05/2024 14:13 Note Text: This note was created using [employer]. Subjective Anirudh Wiggins is a 28 year old female. HPI Presents with right lower tooth pain over the past 3 days. She states the filling fell out and she put some tooth putty in it but is still very painful. She has an appointment with her dentist on the but they told her to come in to make sure it was not infected. She has tried ibuprofen and Tylenol [id number]. No fever. No drainage from the tooth. She has not noticed facial swelling. Review of Systems Constitutional: Negative. HENT: Positive for dental problem. Eyes: Negative. Respiratory: Negative. Cardiovascular: Negative. Gastrointestinal: Negative. Genitourinary: Negative. Musculoskeletal: Negative. All other systems reviewed and are negative. PAST MEDICAL HISTORY Diagnosis Date Anemia DEPRESSION GBS (group B streptococcus) UTI complicating 07/17/2014 07/17/14 - treat in labor - KJ Rubella non-immune status, antepartum 01/13/2014 Current Outpatient Medications Medication Sig Dispense Refill acetaminophen (TYLENOL) 325 mg tablet Take 650 mg by mouth every 6 hours as needed. amoxicillin-clavulanate potassium (AUGMENTIN) 875-125 mg per tablet Take 1 tablet by mouth two times a day for 7 days. 14 tablet 0 No current facility-administered medications for this visit. PAST SURGICAL HISTORY Procedure Laterality Date PAST SURGICAL HISTORY OF 2007 D and C FAMILY HISTORY Problem Relation Age of Onset Hypertension Mother Arthritis Mother Heart Mother IRREGULAR HEARTBEAT Alcohol/Drug Father Psychiatry Father other (DEMENTIA) Paternal Grandmother Social History Tobacco Use Smoking status: Every Day Packs/day: 1.00 Years: 5.00 Additional pack years: 0.00 Total pack years: 5.00 Types: Cigarettes Smokeless tobacco: Never Substance Use Topics Alcohol use: Yes Comment: rarely Drug use: No Objective BP 110/88 Pulse 75 Temp 36.3 ?C (97.3 ?F) Resp 21 Wt 111.9 kg (246 lb 9.6 oz) LMP 10/11/2016 SpO2 98% BMI 37.50 kg/m? Physical Exam Vitals reviewed. Constitutional: Appearance: Normal appearance. HENT: Head: Normocephalic and atraumatic. Mouth/Throat: Comments: Patient tooth #29 appears to have a broken filling with tooth putty in place. There is some mild gumline swelling. Some mild overlying facial swelling. No trismus. Skin: General: Skin is warm and dry. Neurological: Mental Status: She is alert. Assessment and Plan ASSESSMENT/PLAN: 1. Dental infection - ICD9: 522.4, ICD10: K04.7 Will treat with Augmentin. Follow-up with dentist. Discussed appropriate ibuprofen and Tylenol dose. Janiya Gomez PA-C [facility] 01-05-2024 History of Presen t illness Narrative This note was created using [employer]. Subjective Anirudh Wiggins is a 28 year old female. HPI Presents with right lower tooth pain over the past 3 days. She states the filling fell out and she put some tooth putty in it but is still very painful. She has an appointment with her dentist on the but they told her to come in to make sure it was not infected. She has tried ibuprofen and Tylenol [id number]. No fever. No drainage from the tooth. She has not noticed facial swelling. Review of Systems Constitutional: Negative. HENT: Positive for dental problem. Eyes: Negative. Respiratory: Negative. Cardiovascular: Negative. Gastrointestinal: Negative. Genitourinary: Negative. Musculoskeletal: Negative. All other systems reviewed and are negative. PAST MEDICAL HISTORY Diagnosis Date Anemia DEPRESSION GBS (group B streptococcus) UTI complicating 07/17/2014 07/17/14 - treat in labor - KJ Rubella non-immune status, antepartum 01/13/2014 Current Outpatient Medications Medication Sig Dispense Refill acetaminophen (TYLENOL) 325 mg tablet Take 650 mg by mouth every 6 hours as needed. amoxicillin-clavulanate potassium (AUGMENTIN) 875-125 mg per tablet Take 1 tablet by mouth two times a day for 7 days. 14 tablet 0 No current facility-administered medications for this visit. PAST SURGICAL HISTORY Procedure Laterality Date PAST SURGICAL HISTORY OF 2007 D and C FAMILY HISTORY Problem Relation Age of Onset Hypertension Mother Arthritis Mother Heart Mother IRREGULAR HEARTBEAT Alcohol/Drug Father Psychiatry Father other (DEMENTIA) Paternal Grandmother Social History Tobacco Use Smoking status: Every Day Packs/day: 1.00 Years: 5.00 Additional pack years: 0.00 Total pack years: 5.00 Types: Cigarettes Smokeless tobacco: Never Substance Use Topics Alcohol use: Yes Comment: rarely Drug use: No Objective BP 110/88 Pulse 75 Temp 36.3 C (97.3 F) Resp 21 Wt 111.9 kg (246 lb 9.6 oz) LMP 10/11/2016 SpO2 98% BMI 37.50 kg/m Physical Exam Vitals reviewed. Constitutional: Appearance: Normal appearance. HENT: Head: Normocephalic and atraumatic. Mouth/Throat: Comments: Patient tooth #29 appears to have a broken filling with tooth putty in place. There is some mild gumline swelling. Some mild overlying facial swelling. No trismus. Skin: General: Skin is warm and dry. Neurological: Mental Status: She is alert. Assessment and Plan ASSESSMENT/PLAN: 1. Dental infection - ICD9: 522.4, ICD10: K04.7 Will treat with Augmentin. Follow-up with dentist. Discussed appropriate ibuprofen and Tylenol dose. Janiya Gomez PA-C documented in this encounter [facility] 10-28-2023 Note HNO ID: [id number] Author: Emilee Jarrell APRN.POINTER MACHINE OPERATOR Service: ? Author Type: Nurse Practitioner Type: Progress Notes Filed: 11/07/2023 9:48 AM Note Text: Subjective Nasal Congestion Associated symptoms include chills, congestion, headaches and a sore throat. Pertinent negatives include no coughing or ear pain. Anirudh Wiggins is a 28 year old female who presents with 6 hours of fever, body aches, chills, nasal congestion, sore throat, and headache. Her daughter was sick last night and today with similar symptoms. She has taken Tylenol for fever. Review of Systems Constitutional: Positive for chills and fever. HENT: Positive for congestion and sore throat. Negative for ear pain. Respiratory: Negative for cough. Cardiovascular: Negative. Gastrointestinal: Negative for diarrhea and vomiting. Musculoskeletal: Positive for myalgias. Neurological: Positive for headaches. BP 122/70 Pulse 88 Temp (!) 38.2 ?C (100.8 ?F) Resp 16 Wt 119.7 kg (264 lb) LMP 10/11/2016 SpO2 99% BMI 40.14 kg/m? PAST MEDICAL HISTORY Diagnosis Date Anemia DEPRESSION GBS (group B streptococcus) UTI complicating 07/17/2014 07/17/14 - treat in labor - KJ Rubella non-immune status, antepartum 01/13/2014 PAST SURGICAL HISTORY Procedure Laterality Date PAST SURGICAL HISTORY OF 2007 D and C ALLERGIES Patient has no known allergies. MEDICATIONS acetaminophen (TYLENOL) 325 mg tablet Take 650 mg by mouth every 6 hours as needed. FAMILY HISTORY Problem Relation Age of Onset Hypertension Mother Arthritis Mother Heart Mother IRREGULAR HEARTBEAT Alcohol/Drug Father Psychiatry Father other (DEMENTIA) Paternal Grandmother Social History Tobacco Use Smoking status: Every Day Packs/day: 1.00 Years: 5.00 Additional pack years: 0.00 Total pack years: 5.00 Types: Cigarettes Smokeless tobacco: Never Substance Use Topics Alcohol use: Yes Comment: rarely Drug use: No Objective Physical Exam Vitals and nursing note reviewed. Constitutional: General: She is not in acute distress. Appearance: Normal appearance. She is not ill-appearing. HENT: Right Ear: Tympanic membrane, ear canal and external ear normal. Left Ear: Tympanic membrane, ear canal and external ear normal. Nose: Congestion present. Mouth/Throat: Mouth: Mucous membranes are moist. Pharynx: Oropharynx is clear. Uvula midline. No oropharyngeal exudate or posterior oropharyngeal erythema. Cardiovascular: Rate and Rhythm: Normal rate and regular rhythm. Heart sounds: Normal heart sounds. Pulmonary: Effort: Pulmonary effort is normal. No respiratory distress. Breath sounds: Normal breath sounds. No wheezing or rales. Musculoskeletal: Cervical back: Neck supple. Lymphadenopathy: Cervical: No cervical adenopathy. Skin: General: Skin is warm and dry. Findings: No erythema or rash. Neurological: Mental Status: She is alert. ASSESSMENT/PLAN: 1. Viral URI - ICD9: 465.9, ICD10: J06.9 (primary diagnosis) - Discussed viral etiology and rationale for treatment. - Symptomatic treatment with prn analgesia - Supportive care with fluids and rest - COVID AND INFLUENZA A/B NAAT, ROUTINE 2. Sore throat - ICD9: 462, ICD10: J02.9 - suspect viral - Discussed supportive care treatment with fluids, rest and analgesia. - Follow-up with your PCP in 3-5 days if symptoms have not improved or sooner if symptoms worsen - Discussed red flags and need for immediate medical evaluation if any occur. - Discussed supportive care treatment with fluids, rest and analgesia. - Discussed expected course of illness Emilee Jarrell APRN.[facility] 10-28-2023 History of Presen t illness Narrative Subjective Nasal Congestion Associated symptoms include chills, congestion, headaches and a sore throat. Pertinent negatives include no coughing or ear pain. Anirudh Wiggins is a 28 year old female who presents with 6 hours of fever, body aches, chills, nasal congestion, sore throat, and headache. Her daughter was sick last night and today with similar symptoms. She has taken Tylenol for fever. Review of Systems Constitutional: Positive for chills and fever. HENT: Positive for congestion and sore throat. Negative for ear pain. Respiratory: Negative for cough. Cardiovascular: Negative. Gastrointestinal: Negative for diarrhea and vomiting. Musculoskeletal: Positive for myalgias. Neurological: Positive for headaches. BP 122/70 Pulse 88 Temp (!) 38.2 C (100.8 F) Resp 16 Wt 119.7 kg (264 lb) LMP 10/11/2016 SpO2 99% BMI 40.14 kg/m PAST MEDICAL HISTORY Diagnosis Date Anemia DEPRESSION GBS (group B streptococcus) UTI complicating 07/17/2014 07/17/14 - treat in labor - KJ Rubella non-immune status, antepartum 01/13/2014 PAST SURGICAL HISTORY Procedure Laterality Date PAST SURGICAL HISTORY OF 2008 D and C ALLERGIES Patient has no known allergies. MEDICATIONS acetaminophen (TYLENOL) 325 mg tablet Take 650 mg by mouth every 6 hours as needed. FAMILY HISTORY Problem Relation Age of Onset Hypertension Mother Arthritis Mother Heart Mother IRREGULAR HEARTBEAT Alcohol/Drug Father Psychiatry Father other (DEMENTIA) Paternal Grandmother Social History Tobacco Use Smoking status: Every Day Packs/day: 1.00 Years: 5.00 Additional pack years: 0.00 Total pack years: 5.00 Types: Cigarettes Smokeless tobacco: Never Substance Use Topics Alcohol use: Yes Comment: rarely Drug use: No Objective Physical Exam Vitals and nursing note reviewed. Constitutional: General: She is not in acute distress. Appearance: Normal appearance. She is not ill-appearing. HENT: Right Ear: Tympanic membrane, ear canal and external ear normal. Left Ear: Tympanic membrane, ear canal and external ear normal. Nose: Congestion present. Mouth/Throat: Mouth: Mucous membranes are moist. Pharynx: Oropharynx is clear. Uvula midline. No oropharyngeal exudate or posterior oropharyngeal erythema. Cardiovascular: Rate and Rhythm: Normal rate and regular rhythm. Heart sounds: Normal heart sounds. Pulmonary: Effort: Pulmonary effort is normal. No respiratory distress. Breath sounds: Normal breath sounds. No wheezing or rales. Musculoskeletal: Cervical back: Neck supple. Lymphadenopathy: Cervical: No cervical adenopathy. Skin: General: Skin is warm and dry. Findings: No erythema or rash. Neurological: Mental Status: She is alert. ASSESSMENT/PLAN: 1. Viral URI - ICD9: 465.9, ICD10: J06.9 (primary diagnosis) - Discussed viral etiology and rationale for treatment. - Symptomatic treatment with prn analgesia - Supportive care with fluids and rest - COVID & INFLUENZA A/B NAAT, ROUTINE 2. Sore throat - ICD9: 462, ICD10: J02.9 - suspect viral - Group A strep molecular testing negative - Discussed supportive care treatment with fluids, rest and analgesia. - Follow-up with your PCP in 3-5 days if symptoms have not improved or sooner if symptoms worsen - Discussed red flags and need for immediate medical evaluation if any occur. - Discussed supportive care treatment with fluids, rest and analgesia. - Discussed expected course of illness Emilee Jarrell APRN.POINTER MACHINE OPERATOR documented in this encounter [facility] 10-28-2023 Instructions Emilee Jarrell APRN.POINTER MACHINE OPERATOR - 10/28/2023 1:04 PM EST ASSESSMENT/PLAN: 1. Viral URI - ICD9: 465.9, ICD10: J06.9 (primary diagnosis) - Discussed viral etiology and rationale for treatment. - Symptomatic treatment with prn analgesia - Supportive care with fluids and rest - COVID & INFLUENZA A/B NAAT, ROUTINE 2. Sore throat - ICD9: 462, ICD10: J02.9 - suspect viral - Group A strep molecular testing negative - Discussed supportive care treatment with fluids, rest and analgesia. - Follow-up with your PCP in 3-5 days if symptoms have not improved or sooner if symptoms worsen - Discussed red flags and need for immediate medical evaluation if any occur. - Discussed supportive care treatment with fluids, rest and analgesia. - Discussed expected course of illness Emilee Jarrell APRN.POINTER MACHINE OPERATOR Treatment for Viral Upper Respiratory Tract Infections Your body will kill off the virus by itself. Additionally, you can prime your body's immune system. This may help you get better more quickly. Drink lots of fluids Make sure you are eating well Get plenty of rest We do not have any medications that kill off these viruses. Antibiotics are used to treat bacterial infections; however, they are not active against viral infections. There are some things that might help you feel better, though. Vaporizers, humidifiers, hot showers, and hot fluids help open respiratory and sinus passages Fielding Nasal Maysel may offer relief of nasal and head congestion Neftaly's Vapor Rub may relieve congestion Tylenol and Advil help control fevers and headaches Salt water gargles help relieve sore throats Chloraceptic spray or throat lozenges may also help relieve sore throat symptoms Occasionally, viral infections turn into something more serious. You should see your doctor or return to the Urgent Care if: You have fevers for longer than five days You have fevers above 102 degrees You are still sick after 10 days You have shortness of breath or wheezing After several days you are getting worse rather than better documented in this encounter [facility] 01-06-2023 Miscellaneous Notes Addended by: CINDY LOPEZ on: 01/06/2023 02:56 PM Modules accepted: Orders documented in this encounter [facility] 01-06-2023 Instructions Cindy Lopez APRN.CNP - 01/06/2023 2:43 PM EST 1.) Get more rest than you usually do - this will speed your recovery. If you push hard with your usual busy schedule, you will be sicker longer. 2.) Drink a lot of water - enough to make you urinate every 2-3 hours (your urine should be a light yellow color). This helps thin the phlegm and sooth the airways. Gatorade (G2) is less in sugar and replaces your electrolytes if not eating well. 3.) Run a cool mist humidifier in your bedroom on high with the door closed. This is a natural way to decongest, and it helps lessen scratchy throats, nasal stuffiness and coughs. 4.) For those without blood pressure concerns, take Sudafed as a decongestant (decreases stuffiness-lets drain), but realize that you will need to take it every 4-6 hours for several days. The lower dose is generally better tolerated (30mg)... Some people can make feel fast heart rate/jittery. You also may try anti-allergy pill like Claritin(loratidine) 10mg or marcos, benadryl (makes sleepy) over the counter as directed to help with drippy nose. Mucinex 600-1200mg twice daily(plain) may help thin secretions so they are easier to cough up. Those with high blood pressure and not with prostate problems can try [id number] Coricidin HBP for congestion. You may find nasal sprays such as Flonase or Nasacort, saline nasal spray and/or Netti Pot may be beneficial 5.) Take ibuprofen or acetominophen every 4-6 hours for pain/aches as needed if not contraindicated for you. Antibiotic as directed per prescription If you should breakout in a rash, stop the medicine and call the office. Any antibiotic has the potential to cause diarrhea due to alteration in the normal bacterial zach of the gut. This can be reduced by eating yogurt with active cultures or taking probiotics daily while on the medication. If diarrhea becomes severe (watery, large volumes or more than 3-4/day) call the office. Women may experience yeast vaginitis due to alteration in the vaginal zach. Symptoms include vaginal itching, irritation, and often a clumpy white discharge. If this occurs, there are several effective over the counter remedies available, including one-dose treatments. If these are unsuccessful, call the office. Antibiotics may interfer with control. If you are on oral contraceptives, use another form of protection (condoms, foams, jellies, diaphragm) throught the end of whatever pill pack you are on in 10 days. If you are not improving in 3-5 days or are worsening follow up with PCP documented in this encounter [facility] 01-06-2023 History of Presen t illness Narrative CC: Patient presents with: Cough: Cough, chest congestion, ST, [place], chills, fever and SOB x 1.5 weeks HPI: Anirudh Wiggins is a 27 year old female who presents to the office with complaint of chest congestion, cough, nonproductive, and sore throat for 1.5 weeks. Symptoms are staying the same. Associated symptoms includes sore throat, headache, and chills. Denies rash, wheezing, nausea, vomiting , and diarrhea. Treatments tried include nothing so far. with no relief of symptoms. Sick contacts: unknown. History of asthma, frequent episodes of bronchitis, chronic bronchitis, bronchiectasis or COPD: No Smoker: No Seasonal/environmental allergies: No The ROS is otherwise negative. The patient's pmh, medications, allergies, and past visits are reviewed. PHYSICAL EXAM: BP 122/74 Pulse 76 Temp 37 C (98.6 F) (Tympanic) Resp 18 Wt 112.3 kg (247 lb 9.6 oz) LMP 10/11/2016 SpO2 99% BMI 37.65 kg/m General appearance: alert, cooperative, pleasant, in no acute distress Head: Normocephalic Eyes: EOM's intact, conjunctiva pink and moist, no icterus, sclera white, non-injected Ears: Right ear: External ear/canal- Normal, TM - clear with good landmarks. Left ear: External ear/canal- Normal, TM - clear with good landmarks Oropharynx:mild erythema, without exudates present Heart: Negative. RRR without obvious murmur, gallop, or rubs. No ectopy. Lungs: clear to auscultation, without rales or wheeze, good air exchange PAST MEDICAL HISTORY Diagnosis Date Anemia DEPRESSION GBS (group B streptococcus) UTI complicating 07/17/2014 07/17/14 - treat in labor - KJ Rubella non-immune status, antepartum 01/13/2014 PAST SURGICAL HISTORY Procedure Laterality Date PAST SURGICAL HISTORY OF 2007 D and C ALLERGIES Patient has no known allergies. MEDICATIONS acetaminophen (TYLENOL) 325 mg tablet Take 650 mg by mouth every 6 hours as needed. FAMILY HISTORY Problem Relation Age of Onset Hypertension Mother Arthritis Mother Heart Mother IRREGULAR HEARTBEAT Alcohol/Drug Father Psychiatry Father other (DEMENTIA) Paternal Grandmother Social History Tobacco Use Smoking status: Every Day Packs/day: 1.00 Years: 5.00 Pack years: 5.00 Types: Cigarettes Smokeless tobacco: Never Substance Use Topics Alcohol use: Yes Comment: rarely Drug use: No ASSESSMENT/PLAN: 1. Sore throat - ICD9: 462, ICD10: J02.9 (primary diagnosis) - STREP A MOLECULAR (POC) - neg 2. Rhinosinusitis - ICD9: 473.9, ICD10: J31.0, J32.9 Augmentin bid for 5 days per patient request in case of . Prescription instructions reviewed with patient as applicable. Potential red flag symptoms discussed with the patient. Reviewed appropriate action plan to take if red flag symptoms occur. Patient agreeable to treatment plan. Cindy Lopez APRN.[facility] documented in this encounter [facility] 12-13-2022 History of Presen t illness Narrative Subjective HPI Patient presents to urgent care with chief complaint of upper respiratory tract like infection. Duration of symptoms 2 days. Associated symptoms sore throat, nasal congestion, nasal discharge and nonproductive cough. Patient denies the use of any [id number] medications or home remedies for symptom management. Patient states recent sick contacts with similar signs and symptoms. Patient denies any productive cough, fever, chest pain, shortness of breath, pleuritic pain, rash, abdominal pain, nausea, vomiting or change in bowel or bladder habit. Past medical history prescription medication use allergies reviewed. .Patient presents with: Sore Throat: x 2-3 days PAST MEDICAL HISTORY Diagnosis Date Anemia DEPRESSION GBS (group B streptococcus) UTI complicating 07/17/2014 07/17/14 - treat in labor - KJ Rubella non-immune status, antepartum 01/13/2014 PAST SURGICAL HISTORY Procedure Laterality Date PAST SURGICAL HISTORY OF 2007 D and C ALLERGIES Patient has no known allergies. MEDICATIONS acetaminophen (TYLENOL) 325 mg tablet Take 650 mg by mouth every 6 hours as needed. FAMILY HISTORY Problem Relation Age of Onset Hypertension Mother Arthritis Mother Heart Mother IRREGULAR HEARTBEAT Alcohol/Drug Father Psychiatry Father other (DEMENTIA) Paternal Grandmother Social History Tobacco Use Smoking status: Every Day Packs/day: 1.00 Years: 5.00 Pack years: 5.00 Types: Cigarettes Smokeless tobacco: Never Substance Use Topics Alcohol use: Yes Comment: rarely Drug use: No BP 122/72 Pulse 90 Temp 36.3 C (97.4 F) Resp 16 Wt 112 kg (247 lb) LMP 10/11/2016 SpO2 99% BMI 37.56 kg/m Review of Systems Constitutional: Negative for chills, fever and malaise/fatigue. HENT: Positive for congestion and sore throat. Negative for ear discharge, ear pain and sinus pain. Eyes: Negative for blurred vision, pain, discharge and redness. Respiratory: Positive for cough. Negative for hemoptysis, sputum production, shortness of breath, wheezing and stridor. Cardiovascular: Negative for chest pain. Gastrointestinal: Negative for abdominal pain, diarrhea, nausea and vomiting. Musculoskeletal: Negative for myalgias. Skin: Negative for itching and rash. Neurological: Positive for headaches. Negative for dizziness. Objective Physical Exam Constitutional: General: She is not in acute distress. Appearance: She is not diaphoretic. HENT: Head: Normocephalic. Jaw: No trismus, tenderness, swelling or pain on movement. Nose: Congestion present. Mouth/Throat: Lips: [place]. Mouth: Mucous membranes are moist. Pharynx: Oropharynx is clear. Uvula midline. Posterior oropharyngeal erythema present. No pharyngeal swelling, oropharyngeal exudate or uvula swelling. Eyes: Conjunctiva/sclera: Conjunctivae normal. Pupils: Pupils are equal, round, and reactive to light. Cardiovascular: Rate and Rhythm: Normal rate and regular rhythm. Heart sounds: Normal heart sounds. Pulmonary: Effort: Pulmonary effort is normal. No tachypnea, accessory muscle usage or respiratory distress. Breath sounds: Normal breath sounds. No stridor. No wheezing, rhonchi or rales. Abdominal: General: There is no distension. Palpations: Abdomen is soft. Tenderness: There is no abdominal tenderness. There is no guarding or rebound. Musculoskeletal: Cervical back: Normal range of motion and neck supple. No rigidity or tenderness. Lymphadenopathy: Cervical: No cervical adenopathy. Skin: General: Skin is warm and dry. Neurological: Mental Status: She is alert and oriented to person, place, and time. ASSESSMENT/PLAN: 1. Sore throat - ICD9: 462, ICD10: J02.9 (primary diagnosis) - STREP A MOLECULAR (POC) 2. URI with cough and congestion - ICD9: 465.9, ICD10: J06.9 - Discussed viral etiology and rationale for treatment. - Symptomatic treatment with prn analgesia - Supportive care with fluids and rest Strep test negative. Patient will follow up with primary care provider as needed. Patient was instructed to immediately proceed to emergency room for any new, worsening, or symptoms lasting longer than anticipated. The patient's clinical presentation is otherwise unremarkable at this time. Based on exam and clinical finding, the patient is stable for discharge. Plan of care was discussed with patient. Patient verbalizes understanding and agrees to plan of care. This note was generated using [employer] software. It may contain errors in wording, punctuation, or spelling. Maureen Nix APRN.JERICA documented in this encounter [facility] 10-22-2015 History of Past i llness Narrative Problem Noted Date Resolved Date Headache 10/22/2015 03/23/2017 History of miscarriage, currently 01/1206/03/2014 Overview: 01/12/2014She is 2 para 0 with a history of a miscarriage in 2007. She denies any bleeding or pain this . Miscarriage precautions given. Patient is to call/come in if she develops any bleeding, the development of pain, or problems. TKRN with uncertain dates 01/12/2014 0 06/03/2014 Overview: 01/12/2014She is unsure of the date of her last menstrual period. She states that she believes was in early November. An ultrasound was ordered by Dr. Martínez for uncertain dates.TKRN Patient requested diagnostic testing 01/12/2014 06/03/2014 Overview: 01/12/2014Patient desires early screening in with sequential testing.TKRN documented as of this encounter (statuses as of 12/13/2022) [facility] History of Past illness Narrative* Problem Noted Date Resolved Date Headache 10/22/2015 03/23/2017 History of miscarriage, currently 01/1206/03/2014 Overview: 01/12/2014She is 2 para 0 with a history of a miscarriage in 2007. She denies any bleeding or pain this . Miscarriage precautions given. Patient is to call/come in if she develops any bleeding, the development of pain, or problems. TKRN with uncertain dates 01/12/2014 0 06/03/2014 Overview: 01/12/2014She is unsure of the date of her last menstrual period. She states that she believes was in early November. An ultrasound was ordered by Dr. Martínez for uncertain dates.TKRN Patient requested diagnostic testing 01/12/2014 06/03/2014 Overview: 01/12/2014Patient desires early screening in with sequential testing.TKRN documented as of this encounter (statuses as of 01/06/2023) [facility] History of Past illness Narrative* Problem Noted Date Diagnosed Date Resolved Date Headache 10/22/2015 03/23/2017 History of miscarriage, currently 01/12/2014 06/03/2014 Overview: 01/12/2014She is 2 para 0 with a history of a miscarriage in 2007. She denies any bleeding or pain this . Miscarriage precautions given. Patient is to call/come in if she develops any bleeding, the development of pain, or problems. TKRN with uncertain dates 01/12/2014 06/03/2014 Overview: 01/12/2014She is unsure of the date of her last menstrual period. She states that she believes was in early November. An ultrasound was ordered by Dr. Martínez for uncertain dates.TKRN Patient requested diagnostic testing 01/12/2014 06/03/2014 Overview: 01/12/2014Patient desires early screening in with sequential testing.TKRN documented as of this encounter (statuses as of 10/28/2023) [facility] History of Past illness Narrative* Problem Noted Date Diagnosed Date Resolved Date Headache 10/22/2015 03/23/2017 History of miscarriage, currently 01/12/2014 06/03/2014 Overview: 01/12/2014She is 2 para 0 with a history of a miscarriage in 2007. She denies any bleeding or pain this . Miscarriage precautions given. Patient is to call/come in if she develops any bleeding, the development of pain, or problems. TKRN with uncertain dates 01/12/2014 06/03/2014 Overview: 01/12/2014She is unsure of the date of her last menstrual period. She states that she believes was in early November. An ultrasound was ordered by Dr. Martínez for uncertain dates.TKRN Patient requested diagnostic testing 01/12/2014 06/03/2014 Overview: 01/12/2014Patient desires early screening in with sequential testing.TKRN documented as of this encounter (statuses as of 01/05/2024) [facility] Sore throat- Primary Acute pharyngitis URI with cough and congestion [facility] Diagnosis Sore throat- Primary Acute pharyngitis Rhinosinusitis Unspecified sinusitis (chronic) documented in this encounter [facility] note* Diagnosis Viral URI- Primary Acute upper respiratory infections of unspecified site Sore throat Acute pharyngitis documented in this encounter [facility] note* Diagnosis Dental infection- Primary Acute apical periodontitis of pulpal origin documented in this encounter [facility] note* Diagnosis Pain, dental- Primary Unspecified disorder of the teeth and supporting structures documented in this encounter [facility] note* Diagnosis Pain, dental- Primary Unspecified disorder of the teeth and supporting structures documented in this encounter [facility] Summary Purpose Family History No Family History Records FoundNo Family History Records FoundNo Family History Records FoundNo Family History Records Found Advance Directives No Advanced Directives Records FoundNo Advanced Directives Records FoundNo Advanced Directives Records FoundNo Advanced Directives Records Found Health Concerns Infection Onset Date Last Indicated Resolved Time COVID-19 Rule-Out 01/06/2023 01/06/2023 Additional Source Comments INFORMATION SOURCE (unrecogn ized section and content) DATE CREATED AUTHOR 07/28/2020 [facility] ([place]) DATE CREATED AUTHOR AUTHOR'S ORGANIZ ATION 09/16/2020 [facility] DATE CREATED AUTHOR AUTHOR'S ORGANIZ ATION 12/10/2023 [facility] DATE CREATED AUTHOR AUTHOR'S ORGANIZ ATION 09/27/2024 [facility] Source Comments (unrecognize d section and content) In the event this informatio n is protected by the Federal Confidentiality of Alcohol and Drug Abuse Patient Records regulations: The Federal rules restrict any use of the information to criminally investigate or prosecute any alcohol or drug abuse patient.[facility] the event this information is protected by the Federal Confidentiality of Alcohol and Drug Abuse Patient Records regulations: The Federal rules restrict any use of the information to criminally investigate or prosecute any alcohol or drug abuse patient.[facility] the event this information is protected by the Federal Confidentiality of Alcohol and Drug Abuse Patient Records regulations: The Federal rules restrict any use of the information to criminally investigate or prosecute any alcohol or drug abuse patient.[facility] the event this information is protected by the Federal Confidentiality of Alcohol and Drug Abuse Patient Records regulations: The Federal rules restrict any use of the information to criminally investigate or prosecute any alcohol or drug abuse patient.[facility] the event this information is protected by the Federal Confidentiality of Alcohol and Drug Abuse Patient Records regulations: The Federal rules restrict any use of the information to criminally investigate or prosecute any alcohol or drug abuse patient.[facility] the event this information is protected by the Federal Confidentiality of Alcohol and Drug Abuse Patient Records regulations: The Federal rules restrict any use of the information to criminally investigate or prosecute any alcohol or drug abuse patient.[facility] Reason for Visit (unrecogniz ed section and content) Reason Comments Sore Throat x 2-3 days Reason Comments Cough Cough, chest congest ion, ST, [place], chills, fever and SOB x 1.5 weeks Reason Comments Nasal Congestion bodyaches, fever and chills x this am Reason Comments Dental Problem Right side bottom to oth pain x 3 days Reason Comments Dental Problem bottom right side to oth pain with swelling x 2 days Reason Comments Dental Problem left bottom tooth pa in x 3 days Care Teams (unrecognized sec tion and content) Medical Liaison Relationship Specialty Start Date End Date Maureen Martinez MD [address] [place] [id number] PCP - General Family Medicine 10/22/15 Medical Liaison Relationship Specialty Start Date End Date Maureen Martinez MD [address] [place], [place] [id number] PCP - General Family Medicine 10/22/15 Medical Liaison Relationship Specialty Start Date End Date Maureen Martinez MD [address], [place] [id number] PCP - General Family Medicine 10/22/15 Medical Liaison Relationship Specialty Start Date End Date Maureen Martinez MD [address], [place] [id number] PCP - General Family Medicine 10/22/15 Medical Liaison Relationship Specialty Start Date End Date Maureen Martinez MD [address], [place] [id number] PCP - General Family Medicine 10/22/15 FOR RECORDS PERTAINING TO PATIENTS WHO ARE OR HAVE BEEN ENROLLED IN A CHEMICAL DEPENDENCY/SUBSTANCEABUSE PROGRAM, SOME INFORMATION MAY BE OMITTED. This clinical summary was aggregated from multiple sources. Caution should be exercised in using it in the provision of clinical care. This summary normalizes information from multiple sources, and as a consequence, information in this document may materially change the coding, format and clinical context of patient data. In addition, data may be omitted in some cases. CLINICAL DECISIONS SHOULD BE BASED ON THE PRIMARY CLINICAL RECORDS. [facility]. provides no warranty or guarantee of the accuracy or completeness of information in this document.
--- NOTE | 2025-04-12 13:33 | CT_ITS ---
PROCEDURE: SINUS/FACIAL BONE REASON FOR EXAM: LEFT JAW PAIN, TRAUMA TECHNIQUE: CT of the paranasal sinuses without contrast. Coronal and Sagittal reconstruction series were provided. One or more dose reduction techniques were used (e.g., Automated exposure control, adjustment of the mA and/or kV according to patient size, use of iterative reconstruction technique). COMPARISON: None FINDINGS: No acute facial bone fracture or dislocation. Orbits and orbital contents are within normal limits. Mild diffuse paranasal sinus mucosal thickening. Mastoid air cells are clear. Temporomandibular joints are within normal limits. Mild subcutaneous stranding and skin thickening along the left Deb maxillary soft tissues. No hematoma. 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 CT/Sinus/Facial Bone IMPRESSION: No acute facial bone fracture. Mild left facial soft tissue swelling without underlying hematoma. Reading Location: [place]
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
[2025-04-12] MEDS: Ibuprofen 600 MG Tablet PO (13:52)
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
[2025-04-12 16:11] VITALS: BP 128/79; PULSE 80; RESP 16; O2SAT 98
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
[2025-04-12 17:00] VITALS: BP 128/79; PULSE 80; RESP 16; TEMP 37; O2SAT 98
--- NOTE | 2025-05-03 14:33 | CM.ED ---
Social Work garnett room worker received a correspondence from [facility] that referral was accepted/assigned. Loree Carvalho, HIGH DENSITY TALC COATER OPERATOR, VOIP TECHNICIAN
== END 2025-04-12 17:20 | disposition home or self-care (01) ==
PROVIDERS: Emergency Provider Emergency Medicine; PCP Nurse Practitioner Family; Visit Provider Emergency Medicine
DX: S01.01XA Laceration without foreign body of scalp, initial encounter (principal); S60.042A Contusion of left ring finger without damage to nail, initial encounter; R68.84 Jaw pain; M54.9 Dorsalgia, unspecified; Y04.8XXA Assault by other bodily force, initial encounter; F17.210 Nicotine dependence, cigarettes, uncomplicated
CPT/HCPCS: 70450; 70486; 73140; 99284